=== PATIENT | female | born 2000 | race Caucasian/White ===

== ENCOUNTER 2020-11-03 13:03 | Outpatient (REF) | payer OTHER, SELFPAY | END 2020-11-03 13:04 | disposition home or self-care (01) | LOC: HO.LAB 13:03 | PROVIDERS: Visit Provider Internal Medicine | DX: Z20.822 Contact with and (suspected) exposure to COVID-19 (principal) | CPT/HCPCS: 36415; C9803; U0003 ==

== ENCOUNTER 2020-12-15 10:55 | Outpatient (REF) | payer OTHER, SELFPAY | END 2020-12-15 10:56 | disposition home or self-care (01) | LOC: HO.LAB 10:55 | PROVIDERS: Visit Provider Internal Medicine | DX: Z20.822 Contact with and (suspected) exposure to COVID-19 (principal) | CPT/HCPCS: 36415; C9803; U0003; U0005 ==

== ENCOUNTER 2021-09-02 17:45 | Emergency (ER) | payer MEDICAID, SELFPAY ==
[2021-09-02 18:28] VITALS: BP 110/64; PULSE 78; RESP 20; TEMP 37.1; O2SAT 99
[2021-09-02 18:53] VITALS: BP 110/64; PULSE 78; RESP 16; TEMP 37.1; O2SAT 99; BMI 38.4
--- NOTE | 2021-09-02 19:09 | ED_ITS ---
HPI - Female Genitourinary General Chief complaint: Urogenital-Female Stated complaint: Personal Issue Time Seen by Provider: 09/02/21 19:09 Source: patient Mode of arrival: ambulatory History of Present Illness HPI Narrative: 20-year-old female with no significant past medical history presenting to the ED complaining of lump in rectum x2 weeks. Admits to occasional constipation/straining. States area is not painful, no pain with BMs, no rectal bleeding/melena, areas not growing/enlarging. Denies fever, chills, nausea/vomiting, abdominal pain/diarrhea Related Data Previous Rx's Medication Instructions Recorded hydrocortisone acetate 25 mg 25 mg [place] BEDTIME PRN #12 ea 09/02/21 rectal suppository Allergies Allergy/AdvReac Type Severity Reaction Status Date / Time Apples Allergy Unknown swelling Uncoded 09/06/13 00:00 in mouth FRUIT Allergy Swelling Uncoded 09/02/21 18:59 Review of Systems Review of Systems: Constitutional: No Fever, No Chills ENT/Mouth: No Ear Pain, No Nasal Congestion, No sore throat, No Rhinorrhea Cardiovascular: No Chest Pain, No SOB Respiratory: No Cough Gastrointestinal: No Nausea, No Vomiting, No Diarrhea, No Constipation, No Abdominal pain Genitourinary:No Dysuria, No Urinary Frequency, No Hematuria,No Urgency, No Flank Pain, no rectal pain, rectal bleeding/melena Musculoskeletal: No joint pain, No Myalgias, No Joint Swelling Skin: + Skin Lesions, No rash Neuro: No Weakness, No Numbness, No Paresthesias Yes all other systems are reviewed and are negative [facility] Past Medical History Attestation statement: The following information was validated with the patient. Medical History (Updated 09/02/21 @ 19:24 by TOMAS Johnson) No known health problems Social History Social History Advance Directives: No Advance Directives Information Provided: No Patient : No Physical Exam Vital Signs: Vital Signs: Last Vital Signs Temp 98.7 F 09/02/21 18:53 Pulse 78 09/02/21 18:53 Resp 16 09/02/21 18:53 BP 110/64 09/02/21 18:53 Pulse Ox 99 09/02/21 18:53 Body Mass Index 38.4 Const: General: cooperative, healthy appearing, no acute distress, well developed, alert and awake Orientation/consciousness: patient oriented x3 Limitations: no limitations HENMT: Head: Yes normal to inspection and Yes atraumatic Ears: hearing grossly normal bilaterally General nose exam: Normal external nose present Face and sinus: Yes normal facial exam Eyes: General: appearance normal, both eyes and all related structures EOM: EOMs intact bilaterally Neck: Neck: Yes normal visual inspection and Yes no meningeal signs Resp: Effort & Inspection: normal respiratory effort and no respiratory distress Cardio: Rate: regular rate GI: Other: at 6 o'clock region, mildly inflamed, no erythema/cellulitis, no thrombosis, nontender Inspection: Yes normal to inspection Palpation (GI): Soft to palpation, nontender, no guarding and not rigid Rectal Exam - Female: normal sphincter tone, Internal hemorrhoid(s) present and No fecal impaction Skin: Rashes: no rashes Wounds: no wounds Neuro: General: patient oriented x3 and no meningeal signs Gait exam (Neuro): Normal gait present Extrem: General: Yes normal to inspection MDM - Female Genitourinary MDM Narrative Medical decision making narrative: 20-year-old female with no significant past medical history presenting to the ED complaining of lump in rectum x2 weeks. On exam VSS NAD, physical exam as above consistent with internal hemorrhoid, not thrombosed, no signs of infection. Medical Records Attestation: I reviewed the patient's medical records. Lab Data Attestation: I reviewed the patient's lab results. Discharge Plan Discharge Clinical Impression: Internal hemorrhoid Patient Disposition: Home, Self-Care Instructions: Hemorrhoids (ED) Additional Instructions: You have an internal hemorrhoid, avoid straining/sitting on the toilet for long periods of time Increase fiber in her diet Topical hydrocortisone will help with inflammation If area begins to grow, is increasingly painful, you have bloody or black stool please return to the ED Please follow-up with Colorectal as needed Prescriptions: New hydrocortisone acetate 25 mg suppository 25 mg NC BEDTIME PRN (Reason: hemorrhoids) Qty: 12 RF: 0 Referrals: Cory Licona MD [Physician] - 1 week
== END 2021-09-02 19:35 | disposition home or self-care (01) ==
PROVIDERS: Emergency Provider Internal Medicine
DX: K64.8 Other hemorrhoids (principal)
CPT/HCPCS: 99283

== ENCOUNTER → 2021-09-30 13:53 | Outpatient (BNVA) | payer MEDICAID, SELFPAY | PROVIDERS: Visit Provider Surgery | DX: K64.4 Residual hemorrhoidal skin tags (principal); K64.8 Other hemorrhoids | CPT/HCPCS: 46600; 99202 ==

== ENCOUNTER 2022-03-04 08:21 | Emergency (ER) | payer MEDICAID, SELFPAY ==
--- NOTE | ~2022-03-04 | XR_ITS ---
EXAMINATION: XR CHEST CLINICAL INFORMATION: Cough, shortness of breath COMPARISON: None TECHNIQUE: 2 views of the chest were obtained. FINDINGS: No significant abnormality is noted involving the heart, lungs, mediastinum, bony thorax or soft tissues. XR/XR chest 2V IMPRESSION: No acute cardiopulmonary process.
[2022-03-04 08:45] VITALS: BP 101/62; PULSE 82; RESP 18; TEMP 37; O2SAT 97; BMI 39.6
[2022-03-04 09:13] LABS: COVID-19 Test Negative (Negative); IDNOW Serial# 55D5AD1C
[2022-03-04 09:16] LABS: IDNOW Serial# 16C4AD1C; Influenza A Negative (Negative); Influenza B2 Negative (Negative)
--- NOTE | 2022-03-04 09:42 | ED.URI ---
HPI - URI/Sore Throat General Chief Complaint: Upper Respiratory Symptoms Stated Complaint: diff breathing Time Seen by Provider: 03/04/22 09:13 Source: patient Mode of arrival: ambulatory Limitations: no limitations History of Present Illness HPI Narrative: Patient reports 1 week ago having nausea with vomiting and diarrhea. Symptoms have been intermittent since then. Yesterday feeling very nauseous, had minimal to ED as she felt like she was going to throw up every time. Additionally, yesterday she developed a nonproductive cough, and feeling like she cannot take a deep breath. Also having nasal congestion with this. Denies fevers, shaking chills, ear pain, sore throat, chest pain, palpitations, abdominal pain, dysuria generalized weakness, lower extremity edema. Denies any prior history of DVT/PE, personal history of cancer, no recent surgery or prolonged immobilization. She is not a cigarette smoker. Related Data Previous Rx's Medication Instructions Recorded hydrocortisone acetate 25 mg 25 mg [place] BEDTIME PRN #12 ea 09/02/21 rectal suppository albuterol sulfate 90 mcg/actuation 2 puff INHALATION Q4-6H PRN #6.7 g 03/04/22 aerosol inhaler (ProAir HFA) guaifenesin 600 mg tablet, 600 mg PO Q12H 5 Days #10 tab 03/04/22 extended release 12 hr (Mucinex) prednisone 20 mg tablet 40 mg PO DAILY 4 Days #8 tab 03/04/22 Allergies Allergy/AdvReac Type Severity Reaction Status Date / Time Apples Allergy Unknown swelling Uncoded 09/06/13 00:00 in mouth FRUIT Allergy Swelling Uncoded 09/02/21 18:59 Review of Systems Review of Systems: Constitutional: No fever. No chills. No weakness. Positive fatigue. ENT/ Mouth: No Ear Pain, positive Nasal Congestion, no sore throat, No Rhinorrhea, No Swallowing Difficulty Skin: No rash or itching. Cardiovascular: No chest pain. No palpitations. Respiratory: Positive shortness of breath. Positive cough. No sputum production. Gastrointestinal: Positive nausea. No vomiting. No diarrhea. No abdominal pain. Genitourinary: No burning micturition. No urinary frequency. Neurologic: No headache. No dizziness. No syncope. No numbness or tingling in the extremities. Musculoskeletal: No muscle pain. No back pain. No joint pain or stiffness. Yes all other systems are reviewed and are negative [facility] Past Medical History Attestation statement: The following information was validated with the patient. Source: old records reviewed Medical History Internal and external hemorrhoids without complication No known health problems Obesity Social History Social History Advance Directives: No Advance Directives Information Provided: No Physical Exam Vital Signs: Vital Signs: Last Vital Signs Temp 98.6 F 03/04/22 08:45 Pulse 70 03/04/22 10:25 Resp 20 03/04/22 10:25 BP 101/62 03/04/22 08:45 Pulse Ox 97 03/04/22 08:45 BMI result Body Mass Index 39.6 Vital signs have been reviewed as normal and appeared to be correct. Blood pressure normal.? Heart rate normal.? Respiration rate normal. Temperature normal.? Oxygen saturation normal. Appearance: Alert.?Oriented to person, place and time. No acute distress.?Normal affect. Eyes: Pupils equal, round and reactive to light.? ENT: TM normal bilaterally Pharynx normal.?? Neck: Normal inspection.? Neck supple.??No cervical adenopathy CVS: Heart sounds normal. Normal heart rate and rhythm.? Pulses normal.?? Respiratory: No respiratory distress.? Lung sounds rhonchorous bilaterally with inspiratory wheezing bilaterally. No chest wall tenderness. No crepitus. No increased work of breathing Abdomen: Soft and non-tender. Normoactive bowel sounds. Skin: Skin warm and dry.? Normal skin color.? ? Extremities: No lower extremity edema.? No calf ttp? Neuro: Moves all extremities spontaneously. Sensation intact bilaterally. No motor deficits Ambulates with normal steady gait. Course Course Course Narrative: Patient is a 21-year-old female with no significant past medical history. She presents to the emergency department for evaluation of upper respiratory symptoms, with onset yesterday. She previously was having GI symptoms she attributed to a GI bug. Those have resolved. She reports being vaccinated for COVID-19 and influenza. She does report that one time in the past when she had influenza she required albuterol inhaler. On exam today she has rhonchorous throughout with inspiratory wheezing. Denies any prior history of asthma. She is overall well-appearing, no hypoxia, tachypnea, or tachycardia. Will obtain COVID-19 and influenza testing. Patient to receive albuterol 2.5 mg nebulizer in addition to chest x-ray. Reevaluation(s) Reevaluation #1: COVID-19 testing is negative. Influenza testing is negative. Chest x-ray pending at this time. Patient received albuterol and reports feeling no improvement. Lung sounds without any change. Will order additional albuterol 5 mg nebulizer in addition to prednisone 60 mg p.o. Time: 10:12 Reevaluation #2: Lung sounds significantly improved at this time, no further inspiratory wheezing. Has mildly productive cough at this point. Discussed plan of care for discharge home with albuterol inhaler, prednisone 40 mg p.o. daily for 4 days, and Mucinex. Advised reasons to return back to the emergency department. Provided with contact information for establishing care with a new primary care provider. Patient discharged home in stable condition. Time: 10:53 MDM - URI/Sore Throat Medical Records Attestation: I reviewed the patient's medical records. Lab Data Attestation: I reviewed the patient's lab results. Labs: Lab Results 03/04/22 03/04/22 Range/Units 08:49 08:49 COVID-19 (DEREJE) Negative (Negative) COVID-19 Clin Com See Note Influenza Type A (DAVI) Negative (Negative) Influenza Type B (DAVI) Negative (Negative) Influenza A & B Note See Note Imaging Data Chest x-ray: Radiologist's impression: FINDINGS: No significant abnormality is noted involving the heart, lungs, mediastinum, bony thorax or soft tissues. XR/XR chest 2V IMPRESSION: No acute cardiopulmonary process. Discharge Plan Discharge Clinical Impression: Upper respiratory infection Patient Disposition: Home, Self-Care Instructions: Upper Respiratory Infection (ED) Additional Instructions: Your COVID-19 and influenza testing were both negative. You have been given a new prescription for an albuterol inhaler to use as needed for shortness of breath/difficulty breathing or wheezing. You have been given a new prescription for prednisone this is a steroid to help open her airways and improve your breathing, please take this once a day with food. Additionally you have been given a prescription for Mucinex to help loosen the secretions in your chest please take this twice daily. You may return to the emergency department for any new or worsening symptoms or concerns. Please contact the primary care providers to establish care as a new patient. Prescriptions: New albuterol sulfate [ProAir HFA] 90 mcg/actuation HFA aerosol inhaler 2 puff inhalation Q4-6H PRN (Reason: shortness of breath or wheezing) Qty: 6.7 0RF prednisone 20 mg tablet 40 mg PO DAILY 4 Days Qty: 8 0RF guaifenesin [Mucinex] 600 mg tablet extended release 12hr 600 mg PO Q12H 5 Days Qty: 10 0RF No Action hydrocortisone acetate 25 mg suppository 25 mg WA BEDTIME PRN (Reason: hemorrhoids) Qty: 12 0RF Stand Alone Forms: Work/School Release Interventions: ED Discharge Assessment Last Done: 03/04/22 11:17 Discharge Date/Time: 03/04/22 11:18
[2022-03-04 09:46] VITALS: PULSE 70; RESP 20; O2SAT 97
[2022-03-04] MEDS: Albuterol Sulfate (0.083%) 2.5 MG/3 ML VIAL.NEB INHALE (09:46)
[2022-03-04 10:25] VITALS: PULSE 70; RESP 20; O2SAT 97
[2022-03-04] MEDS: Albuterol Sulfate (0.083%) 2.5 MG/3 ML VIAL.NEB 5 MG INHALE (10:25)
[2022-03-04] MEDS: predniSONE 20 MG TABLET 60 MG PO (10:53)
== END 2022-03-04 11:18 | disposition home or self-care (01) ==
PROVIDERS: Emergency Provider Emergency Medicine
DX: J06.9 Acute upper respiratory infection, unspecified (principal); Z20.822 Contact with and (suspected) exposure to COVID-19
CPT/HCPCS: 71046; 87502; 87635; 94640; 99283; 99284

== ENCOUNTER 2022-09-14 11:28 | Emergency (ER) | payer MEDICAID, SELFPAY ==
[2022-09-14 11:37] VITALS: BP 108/59; PULSE 68; RESP 18; TEMP 36.1; BMI 39.9
--- NOTE | 2022-09-14 13:09 | ED.WOUNDLAC ---
HPI - Wound/Laceration General Chief Complaint: Wound/Laceration <Silvia Case NP - Last Filed: 09/14/22 14:34> Stated Complaint: Toe lac <Silvia Case NP - Last Filed: 09/14/22 14:34> Time Seen by Provider: 09/14/22 13:05 <Silvia Case NP - Last Filed: 09/14/22 14:34> Source: patient <Silvia Case NP - Last Filed: 09/14/22 14:34> Mode of arrival: ambulatory <Silvia Case NP - Last Filed: 09/14/22 14:34> Limitations: no limitations <Silvia Case NP - Last Filed: 09/14/22 14:34> History of Present Illness HPI narrative: 21-year-old female here with laceration to the left middle toe. Patient reports she was putting up [employer] decorations and she stepped on a piece of broken plastic. This happened last night. Tetanus is up-to-date <Silvia Case NP - Last Filed: 09/14/22 14:34> Related Data Home Medications: Previous Rx's Medication Instructions Recorded hydrocortisone acetate 25 mg 25 mg [place] BEDTIME PRN hemorrhoids 09/02/21 rectal suppository #12 ea albuterol sulfate 90 mcg/actuation 2 puff inhalation Q4-6H PRN 03/04/22 aerosol inhaler (ProAir HFA) shortness of breath or wheezing #6.7 grams guaifenesin 600 mg tablet, 600 mg PO Q12H 5 days #10 tabs 03/04/22 extended release 12 hr (Mucinex) prednisone 20 mg tablet 40 mg PO DAILY 4 days #8 tabs 03/04/22 <MEL Raya Last Filed: 09/14/22 14:34> Allergies/Adverse Reactions: Allergies Allergy/AdvReac Type Severity Reaction Status Date / Time Apples Allergy Unknown swelling Uncoded 09/06/13 00:00 in mouth FRUIT Allergy Swelling Uncoded 09/02/21 18:59 <MEL Raya Last Filed: 09/14/22 14:34> Review of Systems Review of Systems: Yes all other systems are reviewed and are negative <Silvia Case NP - Last Filed: 09/14/22 14:34> Constitutional: Constitutional: Reports no additional constitutional complaints, Denies body ache(s), Denies chills, Denies fever(s), Denies headache(s) and Denies weakness <Silvia Case NP - Last Filed: 09/14/22 14:34> Eyes: Eyes: Reports no additional eye complaints and Denies change in vision <Silvia Case NP - Last Filed: 09/14/22 14:34> ENT: Reports system reviewed and no additional complaints, except as documented, Denies dizziness, Denies headache(s), Denies nasal congestion, Denies nasal discharge and Denies neck pain <Silvia Case NP - Last Filed: 09/14/22 14:34> Cardiovascular: Cardiovascular: Reports no additional cardiovascular complaints, Denies chest pain, Denies leg edema and Denies dyspnea <Silvia Case NP - Last Filed: 09/14/22 14:34> Respiratory: Respiratory: Reports no additional respiratory complaints, Denies cough and Denies dyspnea <Silvia Case NP - Last Filed: 09/14/22 14:34> Gastrointestinal: Gastrointestinal: Reports no additional gastrointestinal complaints, Denies abdominal pain, Denies diarrhea, Denies nausea and Denies vomiting <Silvia Case NP - Last Filed: 09/14/22 14:34> Genitourinary: Genitourinary: Reports no additional female genitourinary complaints and Denies urinary incontinence <Silvia Case NP - Last Filed: 09/14/22 14:34> Musculoskeletal: Musculoskeletal: Reports no additional musculoskeletal complaints, Denies back pain, Denies arthralgias, Denies joint swelling, Denies neck pain, Denies numbness and Denies tingling <Silvia Case NP - Last Filed: 09/14/22 14:34> Integumentary/Breasts: Skin/Breast: Reports system reviewed and no additional complaints, except as docu and Denies rash <Silvia Case NP - Last Filed: 09/14/22 14:34> Neurologic: Reports system reviewed and no additional complaints, except as documented, Denies Abnormal speech present, Denies dizziness, Denies headache(s), Denies numbness, Denies tingling and Denies weakness <Silvia Case NP - Last Filed: 09/14/22 14:34> [facility] Past Medical History Attestation statement: The following information was validated with the patient. <Slivia Case NP - Last Filed: 09/14/22 14:34> Source: old records reviewed and nursing notes reviewed <Silvia aCse NP - Last Filed: 09/14/22 14:34> Medical History: Medical History Internal and external hemorrhoids without complication No known health problems Obesity <Silvia Case NP - Last Filed: 09/14/22 14:34> Social History Social History: Social History Advance Directives: No Advance Directives Information Provided: No <Silvia Case NP - Last Filed: 09/14/22 14:34> Physical Exam Vital Signs: Vital Signs: Last Vital Signs Temp 97 F 09/14/22 11:37 Pulse 68 09/14/22 11:37 Resp 18 09/14/22 11:37 BP 108/59 L 09/14/22 11:37 O2 Del Method 09/14/22 11:37 BMI result Body Mass Index 39.9 <Silvia Case NP - Last Filed: 09/14/22 14:34> Vital Signs: Last Vital Signs Temp 97 F 09/14/22 11:37 Pulse 68 09/14/22 11:37 Resp 18 09/14/22 11:37 BP 108/59 L 09/14/22 11:37 O2 Del Method 09/14/22 11:37 BMI result Body Mass Index 39.9 <Estrella Antonio NP - Last Filed: 09/14/22 14:15> Const: General: cooperative, healthy appearing, comfortable and no acute distress <Silvia Case NP - Last Filed: 09/14/22 14:34> Orientation/consciousness: patient oriented x3 <Silvia Case NP - Last Filed: 09/14/22 14:34> Limitations: no limitations <Silvia Case NP - Last Filed: 09/14/22 14:34> HEENT: Head: Yes normal to inspection <Silvia Case NP - Last Filed: 09/14/22 14:34> Ears: hearing grossly normal bilaterally <Silvia Case NP - Last Filed: 09/14/22 14:34> General nose exam: Normal external nose present <Silvia Case NP - Last Filed: 09/14/22 14:34> Face and sinus: Yes normal facial exam <Silvia Case NP - Last Filed: 09/14/22 14:34> Mouth: Normal oral and palatal mucosa present <Silvia Case NP - Last Filed: 09/14/22 14:34> Throat: Yes posterior oropharynx normal <Silvia Case PASTE PLANT SUPERVISOR - Last Filed: 09/14/22 14:34> Eyes: General: appearance normal, both eyes and all related structures <Silvia Case NP - Last Filed: 09/14/22 14:34> Pupils: Equal, round and reactive pupils present <Silvia Case NP - Last Filed: 09/14/22 14:34> Neck: Neck: Yes normal visual inspection <Silvia Case NP - Last Filed: 09/14/22 14:34> Chest: Chest palpation & inspection: normal inspection of the chest <Silvia Case NP - Last Filed: 09/14/22 14:34> Resp: Effort & Inspection: normal respiratory effort <Silvia Case NP - Last Filed: 09/14/22 14:34> Auscultation: clear to auscultation bilaterally <Silvia Case NP - Last Filed: 09/14/22 14:34> Cardio: Rate: regular rate <Silvia Case NP - Last Filed: 09/14/22 14:34> Rhythm: regular rhythm <Silvia Case NP - Last Filed: 09/14/22 14:34> Peripheral pulses: Peripheral pulses 2+ throughout <Silvia Case PASTE PLANT SUPERVISOR - Last Filed: 09/14/22 14:34> GI: Inspection: Yes normal to inspection <Silvia Case PASTE PLANT SUPERVISOR - Last Filed: 09/14/22 14:34> Palpation (GI): Soft to palpation and nontender <Silvia Case PASTE PLANT SUPERVISOR - Last Filed: 09/14/22 14:34> Auscultation: normal bowel sounds <Silvia Case PASTE PLANT SUPERVISOR - Last Filed: 09/14/22 14:34> Back/Spine/Pelvis: Thoracic/Lumbar Spine: thoracic and lumbar spine normal to inspection <Silvia Case PASTE PLANT SUPERVISOR - Last Filed: 09/14/22 14:34> Skin: General skin exam: no rashes or lesions noted <Silvia Case NP - Last Filed: 09/14/22 14:34> Neuro: General: patient oriented x3, no focal motor deficits and normal sensation to monofilament <Silvia Case PASTE PLANT SUPERVISOR - Last Filed: 09/14/22 14:34> Cranial nerves: Yes Equal, round and reactive pupils present <Silvia Case PASTE PLANT SUPERVISOR - Last Filed: 09/14/22 14:34> Cognition (Neuro): normal cognition <Silvia Case PASTE PLANT SUPERVISOR - Last Filed: 09/14/22 14:34> Speech: No Abnormal speech present <Silvia Case PASTE PLANT SUPERVISOR - Last Filed: 09/14/22 14:34> Gait exam (Neuro): Normal gait present <Silvia Case PASTE PLANT SUPERVISOR - Last Filed: 09/14/22 14:34> Motor exam (neuro): 5/5 motor strength present throughout <Silvia Case PASTE PLANT SUPERVISOR - Last Filed: 09/14/22 14:34> Extrem: General: Yes normal to inspection <Silvia Case PASTE PLANT SUPERVISOR - Last Filed: 09/14/22 14:34> Ankle/foot/toe images: 1. 3m lac <Silvia Case PASTE PLANT SUPERVISOR - Last Filed: 09/14/22 14:34> Course Course Course Narrative: See procedure note for wound repair. Done by Estrella LEAL. Patient given postop shoe for ambulation. Reviewed worrisome signs and symptoms when to return to the emergency room. Comfortable for discharge home. <Silvia Case NP - Last Filed: 09/14/22 14:34> Medications Administered Discontinued Medications Generic Name Dose Route Start Last Admin Trade Name Freq PRN Reason Stop Dose Admin Lidocaine HCl 2 ml 09/14/22 13:12 09/14/22 13:21 Lidocaine Hcl 1 % Mpf 2 Ml Vial INFILTRATI 09/14/22 13:13 2 ml ONCE ONE Administration <Silvia Case NP - Last Filed: 09/14/22 14:34> Medications Administered Discontinued Medications Generic Name Dose Route Start Last Admin Trade Name Freq PRN Reason Stop Dose Admin Lidocaine HCl 2 ml 09/14/22 13:12 09/14/22 13:21 Lidocaine Hcl 1 % Mpf 2 Ml Vial INFILTRATI 09/14/22 13:13 2 ml ONCE ONE Administration <Estrella Antonio NP - Last Filed: 09/14/22 14:15> MDM - Wound/Laceration MDM Narrative Medical decision making narrative: Foot laceration Will need wound repair and digital. See procedure note <Silvia Case NP - Last Filed: 09/14/22 14:34> Medical Records Attestation: I reviewed the patient's medical records. <Silvai Case NP - Last Filed: 09/14/22 14:34> Lab Data Attestation: I reviewed the patient's lab results. <Silvia Case NP - Last Filed: 09/14/22 14:34> Procedures Laceration Laceration 1: Site: other (right 3rd toe - posterior) <Estrella Antonio NP - Last Filed: 09/14/22 14:15> Side (If applicable): right <Estrella Antonio NP - Last Filed: 09/14/22 14:15> Description: flap <Estrella Antonio NP - Last Filed: 09/14/22 14:15> Depth: simple, single layer <Estrella Antonio NP - Last Filed: 09/14/22 14:15> Local Anesthetic: lidocaine 1% <Estrella Antonio NP - Last Filed: 09/14/22 14:15> Pre-repair: irrigated extensively <Estrella Antonio NP - Last Filed: 09/14/22 14:15> Skin layer closed with: nylon <Estrella Antonio NP - Last Filed: 09/14/22 14:15> Size (cm): 5-0 <Estrella Antonoi NP - Last Filed: 09/14/22 14:15> Number of sutures: 5 <Estrella Antonio NP - Last Filed: 09/14/22 14:15> Technique: simple, interrupted <Estrella Antonio NP - Last Filed: 09/14/22 14:15> Nerve Block Nerve Block 1: Time out performed: Yes <Silvia Case NP - Last Filed: 09/14/22 14:34> Local Anesthetic: lidocaine 1% <Silvia Case NP - Last Filed: 09/14/22 14:34> Amount of anesthesia used (mL): 3 <Silvia Case NP - Last Filed: 09/14/22 14:34> Side: left <Silvia Case NP - Last Filed: 09/14/22 14:34> Nerve Blocks: digital <Silvia Case NP - Last Filed: 09/14/22 14:34> Procedure Successful: Yes <Silvia Case NP - Last Filed: 09/14/22 14:34> Patient Tolerated Procedure: well <Silvia Case NP - Last Filed: 09/14/22 14:34> Complications: none <Silvia Case NP - Last Filed: 09/14/22 14:34> Discharge Plan Discharge Clinical Impression: Laceration <Silvia Case NP - Last Filed: 09/14/22 14:34> Patient Disposition: Home, Self-Care <Silvia Case NP - Last Filed: 09/14/22 14:34> Instructions: Laceration (ED) <Silvia Case NP - Last Filed: 09/14/22 14:34> Additional Instructions: sutures out in 7- 10 days when showering please wrap the foot so it does not get wet Use the shoe for comfort when walking <Silvia Case NP - Last Filed: 09/14/22 14:34> Prescriptions: No Action hydrocortisone acetate 25 mg suppository 25 mg [place] BEDTIME PRN (Reason: hemorrhoids) Qty: 12 0RF albuterol sulfate [ProAir HFA] 90 mcg/actuation HFA aerosol inhaler 2 puff inhalation Q4-6H PRN (Reason: shortness of breath or wheezing) Qty: 6.7 0RF prednisone 20 mg tablet 40 mg PO DAILY 4 Days Qty: 8 0RF guaifenesin [Mucinex] 600 mg tablet extended release 12hr 600 mg PO Q12H 5 Days Qty: 10 0RF <Silvia Case NP - Last Filed: 09/14/22 14:34> Referrals: [facility] [Primary Care Provider] - 1 week (as needed) <Silvia Case NP - Last Filed: 09/14/22 14:34> Stand Alone Forms: Work/School Release <Silvia Case NP - Last Filed: 09/14/22 14:34> Interventions: ED Discharge Assessment Last Done: 09/14/22 14:24 <Silvia Case NP - Last Filed: 09/14/22 14:34> Discharge Date/Time: 09/14/22 14:24 <Silvia Case NP - Last Filed: 09/14/22 14:34>
[2022-09-14] MEDS: Lidocaine HCl 1 % MPF 2 ML VIAL INFILTRATI (13:21)
== END 2022-09-14 14:24 | disposition home or self-care (01) ==
PROVIDERS: Emergency Provider Emergency Medicine
DX: S91.114A Laceration without foreign body of right lesser toe(s) without damage to nail, initial encounter (principal); S91.115A Laceration without foreign body of left lesser toe(s) without damage to nail, initial encounter; W25.XXXA Contact with sharp glass, initial encounter; Y93.9 Activity, unspecified; Y92.009 Unspecified place in unspecified non-institutional (private) residence as the place of occurrence of the external cause; Y99.9 Unspecified external cause status
CPT/HCPCS: 12042; 99282; 99284

== ENCOUNTER 2023-05-27 19:39 | Outpatient (REF) | payer MEDICAID, SELFPAY ==
[2023-05-28 04:45] LABS: CT PCR NOT DETECTED (Not Detect.); NG PCR NOT DETECTED (Not Detect.)
[2023-05-28 12:51] LABS: BV Int Neg Control Negative (Negative); BV Int Pos Control Positive (Positive)
== END 2023-05-27 19:40 | disposition home or self-care (01) ==
LOC: HO.HHCLNP 19:39
PROVIDERS: Visit Provider Emergency Medicine
DX: N89.8 Other specified noninflammatory disorders of vagina (principal)
CPT/HCPCS: 0353U; 87086; 87147; 87480; 87510; 87660

== ENCOUNTER 2024-02-08 14:47 | Outpatient (REF) | payer MEDICAID, SELFPAY ==
--- NOTE | ~2024-02-08 | CT_ITS ---
EXAMINATION: CT SINUS WITHOUT CONTRAST CLINICAL INFORMATION: 23-year-old with chronic sinusitis. COMPARISON: None available. TECHNIQUE: Volumetric CT imaging of the paranasal sinuses was performed without IV contrast. This CT examination was performed using dose optimization techniques as appropriate, variously including the following: *Automated exposure control *Adjustment of mA and/or kV according to patient size (this includes techniques or standardized protocols for targeted exams where dose is matched to indication/reason for exam; i.e. extremities or head) *Use of iterative reconstruction technique DLP: 102.00 mGy-cm FINDINGS: NASAL CAVITY: There is [id number] nasal septal deviation to the right with narrowing of the right nasal cavity. The olfactory recesses are clear. No discrete nasal cavity masses are identified. The visualized nasopharyngeal soft tissues appear symmetric and normal in attenuation. MAXILLARY SINUSES: There are retention cysts in the maxillary sinuses bilaterally, left more than right with the largest of these on the left measuring approximately 2.8 cm. The right OMC is patent. Mucosal thickening obscures the left maxillary ostium and a portion of the left infundibulum. No air-fluid levels. Some mucosal thickening noted in both maxillary sinuses as well. ETHMOID SINUSES: There is some mucosal thickening in the ethmoid complex bilaterally, with intact bony watson. Probable retention cyst in the mid left ethmoid complex. FRONTAL SINUSES: Hypoplastic. SPHENOID SINUS: Soft tissue occlusion of the sphenoethmoidal recesses and sphenoid ostia bilaterally which may reflect polyps. Otherwise the sphenoid sinus is clear. Carotid canals are covered by bone. ADDITIONAL FINDINGS: Limited assessment of the included intracranial structures demonstrates no acute process. The visualized orbital soft tissues appear grossly unremarkable. The visualized calvarium is intact. The mastoids and middle ear cavities are unopacified. Ear piercing noted on the right. CT/CT sinus wo IV con IMPRESSION: 1. Nasal septal deviation to the right with narrowing of the right nasal cavity. 2. Retention cysts in the maxillary sinuses bilaterally, left more than right with mucosal thickening in the maxillary sinuses and ethmoid complex bilaterally. 3. Soft tissue occlusion of the sphenoethmoidal recesses and sphenoid ostia bilaterally which may reflect polyps. Left OMC is partially occluded. No air-fluid levels. 4. Hypoplastic frontal sinuses.
== END 2024-02-08 14:48 | disposition home or self-care (01) ==
LOC: HO.CT 14:47
PROVIDERS: PCP Registered Nurse; Visit Provider Registered Nurse
DX: J32.9 Chronic sinusitis, unspecified (principal)
CPT/HCPCS: 70486

== ENCOUNTER 2024-02-29 12:07 | Outpatient (REF) | payer MEDICAID, SELFPAY ==
[2024-03-02 21:39] LABS: C. trachomatis RNA TMA NOT DETECTED (NOT DETECTED); N. gonorrhoeae RNA TMA NOT DETECTED (NOT DETECTED)
== END 2024-02-29 12:08 | disposition home or self-care (01) ==
LOC: HO.HHCLNP 12:07
PROVIDERS: Visit Provider Registered Nurse
DX: N76.0 Acute vaginitis (principal)
CPT/HCPCS: 36415; 81513; 87491; 87591

== ENCOUNTER 2024-03-06 09:44 | Outpatient (REF) | payer MEDICAID, SELFPAY ==
[2024-03-06 12:04] LABS: Estimated Average Glucose 108 mg/dL; Hemoglobin A1c % 5.4 % (<6.0)
[2024-03-06 12:08] LABS: Alanine Aminotransferase 16 U/L (0-31); Albumin Level 4.3 g/dL (3.5-5.0); Alkaline Phosphatase 63 U/L (39-117); Anion Gap 14 (12-20); Aspartate Amino Transferase 14 U/L (5-31); Bilirubin Total 0.4 mg/dL (0.0-1.0); Blood Urea Nitrogen 15 mg/dL (9-16); Calcium 9.7 mg/dL (8.4-10.2); Carbon Dioxide 24 mmol/L (22-29); Chloride 105 mmol/L (96-108); Cholesterol 135 mg/dL (<200); Estimated Glomerular Filt Rate > 60; Glucose Random 91 mg/dL (60-115); HDL Cholesterol 54 mg/dL (>40); LDL Cholesterol Calculated 67 mg/dL (<100); Potassium 3.6 mmol/L (3.3-5.1); Sodium 139 mmol/L (135-145); Total Protein 7.2 g/dL (6.5-8.0); Triglycerides 72 mg/dL (<150)
[2024-03-06 12:22] LABS: TSH reflex Free T4 0.54 uIU/mL (0.32-4.0); Vitamin D 25-OH Total 38.5 ng/mL (>30)
[2024-03-07 08:30] LABS: HBS Num1 19.44 mIU/mL (0-7.99); HBc Num1 0.09 S/CO (0.00-0.79); HBsAGNum1 0.28 S/CO (0.00-0.99); HIV AB/AG Nonreactive (Nonreactive); HIV Num 1 0.06 S/CO (0.00-0.99); Hepatitis A Antibody IgM 0.14 Index (0-0.79); Hepatitis B Core Antibody Nonreactive (Nonreactive); Hepatitis B Surface Antigen Negative (Negative); ~HepC Num1 0.15 S/CO (0.00-0.79); ~Hepatitis A Antibody IgM Nonreactive (Nonreactive); ~Hepatitis B Surface Antibody REACTIVE (Nonreactive); ~Hepatitis C Antibody Nonreactive (Nonreactive)
[2024-03-07 16:52] LABS: RPR Rapid Plasma Reagin NON-REACTIVE (NON-REACTIVE)
[2024-03-10 14:59] LABS: Testosterone, Total 34 ng/dL (2-45)
== END 2024-03-06 09:45 | disposition home or self-care (01) ==
LOC: HO.HHCL 09:44
PROVIDERS: Visit Provider Registered Nurse
DX: E66.01 Morbid (severe) obesity due to excess calories (principal); Z70.8 Other sex counseling; L68.0 Hirsutism; Z68.41 Body mass index [BMI] 40.0-44.9, adult
CPT/HCPCS: 36415; 80053; 80061; 82306; 83036; 84403; 84443; 86592; 86704; 86706; 86709; 86803; 87340; 87389

== ENCOUNTER 2024-07-10 13:39 | Outpatient (REF) | payer MEDICAID, SELFPAY ==
[2024-07-11 05:27] LABS: CT PCR NOT DETECTED (Not Detect.); NG PCR NOT DETECTED (Not Detect.)
[2024-07-11 11:35] LABS: Bacterial Vaginosis PCR POSITIVE (Negative); Candida Group PCR DETECTED (Not Detect); Candida glab krusei PCR NOT DETECTED (Not Detect); Trichomonas vaginalis PCR NOT DETECTED (Not Detect)
== END 2024-07-10 13:40 | disposition home or self-care (01) ==
LOC: HO.HHCLNP 13:39
PROVIDERS: Visit Provider Internal Medicine
DX: N90.89 Other specified noninflammatory disorders of vulva and perineum (principal); Z11.3 Encounter for screening for infections with a predominantly sexual mode of transmission
CPT/HCPCS: 0352U; 87070; 87073; 87077; 87186; 87205; 87491; 87591

== ENCOUNTER 2025-02-21 14:40 | Outpatient (REF) | payer MEDICAID, SELFPAY ==
--- NOTE | ~2025-02-21 | XR_ITS ---
EXAMINATION: XR TOES, RIGHT CLINICAL INFORMATION: pain, swelling, bruising R great toe x 2 days s/p trauma COMPARISON: None available. TECHNIQUE: 3 views of the right toes were obtained. FINDINGS: There is a subtle nondisplaced intra-articular fracture of the distal aspect of the proximal phalanx of the hallux. There is associated soft tissue swelling. There are no additional fractures or malalignment. XR/XR toe RT min 2V IMPRESSION: Subtle nondisplaced intra-articular fracture distal aspect of the proximal phalanx of the hallux. Mild soft tissue swelling. Electronically signed by: Wayne Rodriguez MD 02/21/2025 03:47 PM EDT
--- OUTSIDE RECORDS SUMMARY | 2025-02-21 16:40 | XMS_ITS | Encounter Summary ---
Author Organization [employer] Address [address] [place] [address] Care Team Providers Care Rippler Name Role Phone Yokasta Leonardo [facility] Primary Care Provider [phone] Reason for Visit * Reason Onset Date Comments chart prep 02/21/2025 Encounter Details Date Type Department Care Team ([facility] st Contact Info) Description 02/21/2025 Telephone [facility] [address], [place] [phone] Malissa Yokasta [facility] [address] [place], [place] [phone] chart prep Social History Tobacco Use Types Packs/Day Years Used Date Smoking Tobacco: Never Passive Smoke Exposure: Never Smokeless Tobacco: Never Alcohol Use Standard Drinks/Week Comments Never 0 (1 standard drink = 0.6 oz pur e alcohol) Depression Answer Date Recorded Patient Health Questionnaire-9 Score 0 12/07/2024 Patient Health Questionnaire-9 Score 0 12/07/2024 Last PHQ-9: Questionnaire Data Not on file 0 12/07/2024 Housing Stability Answer Date Recorded What is your housing situation today? I have dori arroyo 01/20/[address] you li ve. Do you have problems with any of the following? None of the above 01/20/2024 Food Insecurity Answer Date Recorded Within the past 12 months, y ou worried that your food would run out before you got money to buy more: Sometimes True 2023 Within the past 12 months,th e food you bought just didn't last and you didn't have enough money to get more: Sometimes True 01/20/2024 Transportation Answer Date Recorded In the past 12 months, has l ack of transportation kept you from medical appts, meetings, work or from getting things needed for daily living? No 01/20/2024 Utilities Answer Date Recorded In the past 12 months, has t he electric, gas, oil or water company threatened to shut off services in your home? I am not sure 01/20/2024 Depression Answer Date Recorded Patient Health Questionnaire-2 Score 0 12/07/2024 Comments No Sex and Gender Information Value Date Recorded Sex Assigned at Female 11/04/2022 11:15 AM EST Legal Sex Female 11:14 AM EST Gender Identity Female 11/04/2022 11:15 AM EST Sexual Orientation Straight 12/09/2022 9: 09 AM EST documented as of this encounter Miscellaneous Notes * Telephone Encounter - Dorcas Rashid MA - 02/21/2025 11:39 AM EDT Chart Prep Labs: done Images: done Referrals: complete Vaccines due: Covid, Tdap, Hep B, and HPV Screenings: LMP Overdue care gaps: SDOH, PHQ-9, DARINEL-7, Disability screen, and Tobacco documented in this encounter Plan of Treatment Upcoming Encounters Date Type Department Care Team (Late st Contact Info) Description 02/25/2025 9:45 AM EDT Office Visit [facility] [address] [place] [address] Yokasta Leonardo FNP [address] [place] [address] documented as of this encounter Visit Diagnoses Not on filedocumented in this encounter Additional Health Concerns Assessment Noted Time PHQ-9 Depression Total Score: 0 12/07/19 25 10:23 AM EST documented as of this encounter Care Teams Rippler Relationship Specialty Start Date End Date Yokasta Leonardo FNP [address] [place] [id number] PCP - General Family Medicine 01/03/23 documented as of this encounter
--- OUTSIDE RECORDS SUMMARY | 2025-02-21 16:40 | XMS_ITS | Encounter Summary ---
Author Organization [employer] Address [address] [place] [address] Care Team Providers Care Environmental Sampling Technician Name Role Phone Yokasta Leonardo [facility] Primary Care Provider [phone] Encounter Details Date Type Department Care Team (Late st Contact Info) Description 02/21/2025 Telephone [facility] [address] [place], [place] [phone] Grazyna Shanks DO [address] [place], [place] [phone] Social History Tobacco Use Types Packs/Day Years [...] encounter Miscellaneous Notes * Telephone Encounter - Grazyna Shanks DO - 02/21/2025 4:29 PM EDT Please advise pt that her toe xrays showed a fracture in her big toe. Please advise pt that she is being referred to podiatry for eval. Please offer pt a walking boot in the interim. Thank you. documented in this encounter Plan of Treatment Upcoming Encounters Date Type Department Care Team (Late st Contact Info) Description 02/25/2025 9:45 AM EDT Office Visit [facility] [address] [place] [address] Yokasta Leonardo FNP [address] [place] [address] documented as of this encounter Visit Diagnoses Not on filedocumented in this encounter Additional Health Concerns Assessment Noted Time PHQ-9 Depression Total Score: 0 12/07/19 25 10:23 AM EST documented as of this encounter Care Teams Environmental Sampling Technician Relationship Specialty Start Date End Date Yokasta Leonardo FNP [address] [place] [address] PCP - General Family Medicine 01/03/23 documented as of this encounter
--- OUTSIDE RECORDS SUMMARY | 2025-02-21 16:40 | XMS_ITS | Encounter Summary ---
Author Organization [employer] Address [address] [place] [address] Care Team Providers Care Hvac Service Technician Name Role Phone Yokasta Leonardo [facility] Primary Care Provider [phone] Reason for Visit * Reason Onset Date Comments Medication Question 01/25/2025 Encounter Details Date Type Department Care Team ([facility] st Contact Info) Description 01/25/2025 Telephone [facility] MED[facility] [address] [place], [place] [phone] MalissaYokasta [facility] [address] [place], [place] [phone] Medication Question Social History Tobacco Use Types Packs/Day Years [...] encounter Miscellaneous Notes * Telephone Encounter - Wing Loy RN - 01/25/2025 10:30 AM EDT Tc to pt regarding ongoing rash x 1 yr that is on the neck, back of legs bilaterally, and chest. States the rashes is red, dry, and raises that gets better when triamcinolone is used but returns whennot in use. Sweat triggers it and the rashes comes and goes. Gave appt for 02/01 at 11 am with PCP. Advised pt to use lotion and that refill for triamcinolone was filled. Advised pt to call back if rash gets worse. Pt verbalized understanding and agreement with plan. * Telephone Encounter - Oneal Méndez - 01/25/2025 9:12 AM EDT Tc from pt requesting a call back to discuss getting a alternated medication for triamcinolone (Kenalog) 0.025 % cream. Pt states that the medication is not working for her, she has been taking it for months and nothing has changed. Contact pt at [phone] documented in this encounter Plan of Treatment Upcoming Encounters Date Type Department Care Team (Late st Contact Info) Description 02/25/2025 9:45 AM EDT Office Visit [facility] MEDICINE [address] [place] [phone] Yokasta Leonardo FNP [address] [place] [address] documented as of this encounter Visit Diagnoses Not on filedocumented in this encounter Additional Health Concerns Assessment Noted Time PHQ-9 Depression Total Score: 0 12/07/19 25 10:23 AM EST documented as of this encounter Care Teams Hvac Service Technician Relationship Specialty Start Date End Date Yokasta Leonardo FNP [address] [place] [address] PCP - General Family Medicine 01/03/23 documented as of this encounter
--- OUTSIDE RECORDS SUMMARY | 2025-02-21 16:40 | XMS_ITS | Encounter Summary ---
Author Organization [employer] Address [address] [facility] [address] [place] [address] Care Team Providers Care Muffle Operator Name Role Phone Yokasta Leonardo [facility] Primary Care Provider [phone] Encounter Details Date Type Department Care Team ([facility] Contact Info) Description 01/03/2023 Orders Only [facility] [address] [place], [place] [phone] Grazyna Rubio LPN Social History Tobacco Use Types Packs/Day Years Used Date Smoking Tobacco: Never Smokeless Tobacco: Never Comments Unknown Sex and Gender Information Value Date Recorded Sex Assigned at Female 11/04/2022 11:15 AM EST Legal Sex Female 11:14 AM EST Gender Identity Female 11/04/2022 11:15 AM EST Sexual Orientation Straight 12/09/2022 9: 09 AM EST COVID-19 Exposure Response Date Recorded In the last 10 days, have yo u been in contact with someone who was confirmed or suspected to have Coronavirus/COVID-19? No / Unsure 12/09/2022 9:06 AM EST documented as of this encounter Plan of Treatment Upcoming Encounters Date Type Department Care Team (Late Contact Info) Description 02/25/2025 9:45 AM EDT Office Visit [facility] [address] [place], [place] [phone] BrunoYokasta [facility] [address] [place], [place] [phone] documented as of this encounter Procedures Procedure Name Priority Date/Time Associated Diagnosis Comments CULTURE, URINE, ROUTINE Routine 05/27/2023 2:21 PM EDT documented in this encounter Results * Culture, Urine, Routine (05/27/2023 2:21 PM EDT) Urine specimen obtained by clean catch procedure / Unknown 05/27/2023 2:21 PM EDT 05/27/2023 7:54 PM EDT Comment:[facility] - 05/29/2023 1:23 PM EDT Urine Culture Report Result Urine Culture > 100,000 cfu/ml Urine Culture Mixed bacterial mariam characteristic of Urine Culture urogenital contamination. Strep agalactiae (Grp B) Quant 10,000 to 50,000 cfu/mL Susc N/A Susceptibility not routinely performed on this isolate. Specimen Source: Urine clean catch [facility] - GENERAL ORD ERABLES Final Result [facility] [address] [place] [address] [phone] documented in this encounter Visit Diagnoses Not on filedocumented in this encounter Care Teams Muffle Operator Relationship Specialty Start Date End Date Yokasta Leonardo FNP [address] [place] [address] PCP - General Family Medicine 01/03/23 documented as of this encounter
--- OUTSIDE RECORDS SUMMARY | 2025-02-21 16:40 | XMS_ITS | Clinical Summary ---
Author Organization [employer] Address [address] [facility] [address] [place] [address] Care Team Providers Care Truck Bench Mechanic Name Role Phone Yokasta Leonardo [facility] Primary Care Provider [phone] Allergies Active Allergy Reactions Criticality Noted Date Comments Fruit Extracts 03/10/2023 Dried fruit allergy Medications * This document contains information received from the source organization and may not represent a complete record from that organization. budesonide (Rhinocort AQ) 32 MCG/ACT nasal sprayIndication s:Chronic sinusitis, unspecified location Administer 1-2 sprays into each nostril in the morning. 8.5 g 2 01/25/20 24 Active hydrOXYzine HCl (Atarax) 25 MG tabletIndicatio ns:Generalized anxiety disorder TAKE 1 TABLET BY MOUTH UP TO 4 TIMES DAILY 120 tablet 1 06/01/20 24 Active norethindrone (Micronor) 0.35 MG tablet Take 1 tablet (0.35 mg) by mouth Once per day. 28 tablet 11 07/10/20 24 025 Active escitalopram (Lexapro) 20 MG tabletIndicatio ns:Generalized anxiety disorder Take 1 tablet (20 mg) by mouth Once per day. 30 tablet 2 08/27/20 24 Active bacitracin 500 UNIT/GM ointment Apply to affected area daily 30 g 09/26/20 24 Active Ketotifen Fumarate 0.035 % solution Administer 1 drop into affected eye(s) if needed in the morning and at bedtime (eye redness, itching). 10 mL 09/26/20 24 Active azelastine (Astelin) 0.1 % nasal spray Administer 2 sprays into each nostril 2 times daily. Use in each nostril as directed 30 mL 2 09/26/20 24 025 Active Dextromethorpha n-guaiFENesin (Mucinex DM) 30-600 MG tablet sustained-relea se 12 hour Use 1 tab TID 28 tablet 10/09/20 24 Active azithromycin (Zithromax) 250 MG tablet Take 2 tabs day and then 1 tab daily 6 tablet 10/09/20 24 Active topiramate (Topamax) 50 MG tabletIndicatio ns:Class 2 obesity due to excess calories without serious comorbidity with body mass index (BMI) of 39.0 to 39.9 in adult Take 1 tablet (50 mg) by mouth before evening meal. 30 tablet 11 12/07/19 25 026 Active oxymetazoline (Afrin Nasal [place]) 0.05 % nasal sprayIndication s:Recurrent sinusitis Administer 2 sprays into each nostril every 12 (twelve) hours if needed for congestion for up to 2 days. Do not use for more than 3 days. 30 mL 12/07/19 25 Active phentermine 15 MG capsuleIndicati ons:Class 2 obesity due to excess calories without serious comorbidity with body mass index (BMI) of 39.0 to 39.9 in adult TAKE 1 CAPSULE BY MOUTH EVERY DAY IN THE MORNING BEFORE BREAKFAST 30 capsule 01/24/20 25 Active triamcinolone (Kenalog) 0.025 % creamIndication s:Rash APPLY A THIN LAYER TO AFFECTED AREA(S) TWICE DAILY 80 g 01/24/20 25 Active acetaminophen (Tylenol 8 Hour) 650 MG ER tablet Take 1 tablet (650 mg) by mouth every 8 (eight) hours if needed for mild pain. Do not crush, chew, or split. 40 tablet 1 02/22/20 25 025 Active naproxen (Naprosyn) 500 MG tablet Take 1 tablet (500 mg) by mouth if needed in the morning and at bedtime for mild pain. 40 tablet 1 02/22/20 25 026 Active Diclofenac Sodium 1 % gel Apply 2 g topically if needed in the morning, at noon, in the evening, and at bedtime (pain). 150 g 1 02/22/20 25 Active traMADol (Ultram) 50 MG tabletIndicatio ns:Toe pain, right Take 1 tablet (50 mg) by mouth every 8 (eight) hours if needed for severe pain for up to 5 days. 15 tablet 02/22/20 25 025 Active triamcinolone (Kenalog) 0.025 % creamIndication s:Rash Apply topically 2 times daily. APPLY THIN COAT TO AFFECTED AREA TWICE A DAY 80 g 11/16/19 25 025 Discontinued phentermine 15 MG capsuleIndicati ons:Class 2 obesity due to excess calories without serious comorbidity with body mass index (BMI) of 39.0 to 39.9 in adult Take 1 capsule (15 mg) by mouth before breakfast. 30 capsule 11/30/19 25 025 Discontinued Hospital, Clinic, or Other Facility Administered Medication Ordered Dose Route Frequency Start Date End Date Status ulipristal (Lorie) tablet 30 mgIndications:Unprotected sexual intercourse 30 mg PO Once 09/04/2024 Active Active Problems Problem Noted Date Diagnosed Date Recurrent sinusitis 10/26/2024 Vulvar lesion 07/10/2024 Assessment & Plan (07/10/2024 12:37 PM EDT): - seems to be cellulitis secondary to ingrown pubic hair - prescribed Duricef as she did not tolerate Amoxicillin - avoid using razors or shaving the area for the month - keep area clean and dry and avoid popping of the lesion - re consult PRN Screen for STD (sexually transmitted disease) Assessment & Plan (07/10/2024 12:23 PM EDT): - discussed with pt regarding using condoms at all times - order HIV, Syphilis, and Hepatitis profile - repeat testing in one month Encounter for prescription of emergency contrace ption 07/10/2024 Assessment & Plan (07/10/2024 12:27 PM EDT): - pt actually needs Lorie, prescription sent to pharmacy - discussed about the use of contraception, agreed to start OCP, will prescribe progesterone-only pill due to concerns of weight gain Healthcare maintenance 03/29/2024 Overview (03/29/2024): Pap: 02/2023 through [facility] HPV neg. Repeat 02/2026 Declines COVID vaccine Routine childhood vaccines through [facility]-->will request records Mild major depression 03/08/2024 Assessment & Plan (03/08/2024 11:01 AM EDT): PHQ9, DARINEL-7 PHQ9: 13 GAD7: 20 STAGES OF CHANGE PREPARATION PLAN: (check all that apply) New/Additional Services needed Off-site services for Behavioral Health Integration Plan External OP therapy referral Patient Self Plan Patient to utilize skills provided in intervention , Patient to reach out to [facility] team as needed, Patient to engage in OP therapy , and Patient to reach out to PSYCHIATRIC as needed Rule Out Diagnoses n/a Behavioral Health Diagnoses At this time Lin meets criteria for Visit Diagnoses: Problem List Items Addressed This Visit Mild major depression (CMS/HCC) Generalized anxiety disorder Panic disorder Generalized anxiety disorder 03/08/2024 Panic disorder 03/08/2024 Left otitis media 11/04/2022 Resolved Problems Problem Noted Date Diagnosed Date Resolved Date Acute conjunctivitis of both eyes 12/09/2022 02/21/2025 Encounters Date Type Department Care Team Description 02/21/2025 2:00 PM EDT Office Visit [facility] [address] [place] [phone] Toe pain, right (Primary Dx) 02/21/2025 Telephone [facility] [address] [place] [phone] Grazyna Shanks DO 02/21/2025 Travel 02/21/[address] [address] Yokasta Leonardo FNP chart prep 02/18/2025 Patient Outreach [address] [address] Yokasta Leonardo FNP Pre-visit Planning (LVM) 02/01/[address] [address] Yokasta Leonardo FNP No Show 01/31/[address] [address] Yokasta Leonardo FNP chart prep 01/25/2025 Travel 01/25/2025 Telephone [facility] [address] [facility] [place] [address] Malissa Yokasta, CORPORATE RECRUITER Medication Question 01/22/2025 Refill [facility] [address] [place] [address] Yokasta Leonardo, CORPORATE RECRUITER Class 2 obesity due to excess calories without serious comorbidity with body mass index (BMI) of 39.0 to 39.9 in adult; Rash 12/07/2024 10:15 AM EST Office Visit [facility] [address] [facility] [place] [address] Yokasta Leonardo, CORPORATE RECRUITER Class 2 obesity due to excess calories without serious comorbidity with body mass index (BMI) of 39.0 to 39.9 in adult (Primary Dx); Recurrent sinusitis 12/07/2024 Travel 11/30/2024 Orders Only [facility] [address] [place] [address] Yokasta Leonardo, CORPORATE RECRUITER Class 2 obesity due to excess calories without serious comorbidity with body mass index (BMI) of 39.0 to 39.9 in adult (Primary Dx) from Last 3 Months Family History Medical History Relation Name Comments Heart disease Father Diabetes Maternal Grandfather Diabetes type II Mother Relation Name Status Comments Father Maternal Grandfather Mother Social History Tobacco Use Types Packs/Day Years Used Date Smoking Tobacco: Never Passive Smoke Exposure: Never Smokeless Tobacco: Never Tobacco Cessation:Counseling Given: Not Answered Alcohol Use Standard Drinks/Week Comments Never 0 [...] Orientation Straight 12/09/2022 9: 09 AM EST Last Filed Vital Signs Vital Sign Reading Time Taken Comments Blood Pressure 119/76 02/21/2025 2:11 PM EDT Pulse 74 02/21/2025 2:11 PM EDT Temperature 37.2 ??C (98.9 ??F) 02/21/2025 2:11 PM ED T Respiratory Rate 18 02/21/2025 2:11 PM EDT Oxygen Saturation 98% 02/21/2025 2:11 PM EDT Inhaled Oxygen Concentration - - Weight 88.9 kg (196 lb) 02/21/2025 2:11 PM EDT Height 157.5 cm (5' 2 ) 12/07/2024 10:22 AM EST Body Mass Index 35.85 12/07/2024 10:22 AM EST Plan of Treatment Upcoming Encounters Date Type Department Care Team (Late st Contact Info) Description 02/25/2025 9:45 AM EDT Office Visit [facility] [address] [place] [address] [facility], [facility] [address] [place] [address] Health Maintenance Due Date Last Done Comments Alcohol/Substance Use Screening 2010 Family Planning (PISQ) 2013 HPV Vaccines (1 - 3-dose series) 2013 DTaP/Tdap/Td Vaccines (1 - Tdap) 2017 Hepatitis B Vaccines (1 of 3 - 19+ 3-dose series) 2017 COVID-19 Vaccine (1 - 2023-2 5 season) 2024 Influenza Vaccine (#1) 2024 SDOH Screening 01/19/2025 01/20/2024 Depression Screening 12/07/2025 12/07/2024, 12/07/2024 Tobacco Screening 12/11/2025 12/11/2024 Pap Smear 03/10/2026 03/10/2023 Lipid Panel 03/06/2029 03/06/2024 Zoster Vaccines (1 of 2) 2048 RSV Patients and Patients Aged 60 years or older (1 - 1-dose 75+ series) 2073 HIV Screening Completed 03/06/2024, 03/10/2023 Hepatitis C Screening Completed 03/06/2024 , 03/10/2023 HIB Vaccines Aged Out No longer eligi ble based on patient's age to complete this topic Hepatitis A Vaccines Aged Out No long er eligible based on patient's age to complete this topic IPV Vaccines Aged Out No longer eligi ble based on patient's age to complete this topic Meningococcal Vaccine Aged Out No luis mary eligible based on patient's age to complete this topic Pneumococcal Vaccine: Pediatrics (0 to 5 Years) and At-Risk Patients (6 to 49) Years) Aged Out No longer eligible b ased on patient's age to complete this topic RSV under 20 months Aged Out No longe r eligible based on patient's age to complete this topic Rotavirus Vaccines Aged Out No longer eligible based on patient's age to complete this topic Procedures Procedure Name Priority Date/Time Associated Diagnosis Comments XR TOES 2+ VIEWS RIGHT STAT 02/21/2025 2:41 PM EDT Toe pain, right HEPATITIS PANEL, GENERAL Routine 03/06/2024 9:50 AM EDT Encounter for sexually transmitted infection counseling HIV 1/2 ANTIGEN/ANTIBODY, FOURTH GENERATION W/RFL Routine 03/06/2024 9:50 AM EDT Encounter for sexually transmitted infection counseling LIPID PANEL, STANDARD Routine 03/06/2024 9:50 AM EDT Class 3 severe obesity due to excess calories with body mass index (BMI) of 40.0 to 44.9 in adult, unspecified whether serious comorbidity present (CMS/HCC) IMAGE-GUIDED PAP W/AGE BASED SCR,W/CT/NG/TRICH Routine 03/10/2023 11:07 AM EDT Routine cervical smear from Last 3 Months or Most Recently Relevant to Health Maintenance Results * XR Toes 2+ Views Right (02/21/2025 2:41 PM EDT) Anatomical Region Laterality Modality Lower Extremities, Toes Left [facility] 02/21/2025 2:41 PM EDT Narrative 02/21/2025 3:50 PM EDT ?[facility] ?[address] ?[place] [address] ?XRay Report ? Signed ? Patient: Nieto,Lin ?MR#: [id number] ?? [id number] ? : 2000 ?Acct:[id number] ? Age/Sex: 24 / F ?ADM Date: 02/21/25 ? Loc: HO.HHCX ? Attending Dr: Grazyna Shanks DO ? Ordering Physician: Grazyna Shanks DO ?? Date of Service: 02/21/25 ?? Procedure(s): XR toe RT min 2V ?? Accession Number(s): [id number] ? cc: Grazyna Shanks DO ? EXAMINATION: ?? XR TOES, RIGHT ? CLINICAL INFORMATION: ?? pain, swelling, bruising R great toe x 2 days s/p trauma ? COMPARISON: ?? None available. ? TECHNIQUE: ?? 3 views of the right toes were obtained. ? FINDINGS: ?? There is a subtle nondisplaced intra-articular fracture of the distal ?? aspect of the proximal phalanx of the hallux. There is associated soft ?? tissue swelling. ?? There are no additional fractures or malalignment. ? XR/XR toe RT min 2V ?? IMPRESSION: ?? Subtle nondisplaced intra-articular fracture distal aspect of the ?? proximal phalanx of the hallux. Mild soft tissue swelling. ? Electronically signed by: ??Wayne Rodriguez MD ??02/21/2025 03:47 PM EDT RP ? Dictated By: ?Wayne Rodriguez MD ? Signed By: ?<Electronically signed by Wayne Rodriguez MD in OV> ?02/21/25 1547 ? DD/ 1441 ? TD/TT: 02/21/25 1500 ? Assembler Chassis: ? Procedure Note Donguy, Image - 02/21/2025 [facility] [address] [place] [address] XRay Report Signed Patient: Lin NietoMR#: [id number] : 2000Acct:[id number] Age/Sex: M Date: 02/21/25 Loc: HO.HHCX Attending Dr: Grazyna Shanks DO Ordering Physician: Grazyna Shanks DO Date of Service: 02/21/25 Procedure(s): XR toe RT min 2V Accession Number(s): [id number] cc: Grazyna Shanks DO EXAMINATION: XR TOES, RIGHT CLINICAL INFORMATION: pain, swelling, bruising R great toe x 2 days s/p trauma COMPARISON: None available. TECHNIQUE: 3 views of the right toes were obtained. FINDINGS: There is a subtle nondisplaced intra-articular fracture of the distal aspect of the proximal phalanx of the hallux. There is associated soft tissue swelling. There are no additional fractures or malalignment. XR/XR toe RT min 2V IMPRESSION: Subtle nondisplaced intra-articular fracture distal aspect of the proximal phalanx of the hallux. Mild soft tissue swelling. Electronically signed by: Wayne Rodriguez MD 02/21/2025 03:47 PM EDT Dictated By: Wayne Rodriguez MD Signed By: <Electronically signed by Wayne Rodriguez MD in OV> 02/21/25 1547 DD/ 1441 TD/TT: 02/21/25 1500 Assembler Chassis: Grazyna Shanks DO IMG XR PROCEDURES Final Resu lt * Hepatitis Panel, General (03/06/2024 9:50 AM EDT) Hepatitis A IgM Nonreactive Nonreactive [facility] Comment:IgM antibodies to MERAZ V not detected; does not exclude earlyacute or recovered HAV infection. ~Hepatitis B Surface Antibody REACTIVE Nonreactive [facility] Comment:REACTIVE: > 11.99 mI U/mL Hepatitis B Core Antibody Nonreactive Nonreactive [facility] Hepatitis C Antibody Nonreactive Nonreactive [facility] Comment:Antibodies to HCV no t detected; does not exclude early acuteHCV infection. Hepatitis B Surface Ag Negative Negative [facility] Blood 03/06/2024 9:50 AM EDT 03/06/2024 11:34 AM EDT [facility] LAB BLOOD ORDERABLES Final Re sult [facility] [address] [place] [phone] * HIV-1/2 Antigen and Antibodies, Fourth Generation, with Reflexes (03/06/2024 9:50 AM EDT) HIV AB/AG Nonreactive Nonreactive [facility] Comment:HIV-1 p24 Ag and/or HIV-1/HIV-2 Ab not detected.A test result that is nonreactive does not exclude thepossibility of exposure to or infection with HIV-1 and/orHIV-2. Nonreactive results in this assay for individualswith prior exposure to HIV-1 and/or HIV-2 may be due toantigen and antibody levels that are below the limit ofdetection of this assay.The [employer]ik HIV Ag/Ab Combo assay result andsupplemental assay results should be interpreted inconjunction with the patient's clinical presentation,history and other laboratory results. If the results areinconsistent with clinical evidence, additional testing issuggested to confirm the result. Blood Venous blood specimen / Unknown 03/06/2024 9:50 AM EDT 03/06/2024 11:34 AM EDT [facility] LAB BLOOD ORDERABLES Final Re sult Performing Organization Address [facility] Co de Phone Number [facility] [address] [place] [address] [phone] * Lipid Panel, Standard (03/06/2024 9:50 AM EDT) Triglycerides 72 <150 mg/dL [facility] Comment:Desirable Triglyceri de: less than 150 mg/dLBorderline High Triglyceride 150-199 mg/dLHigh Triglyceride: 200-499 mg/dLVery High Triglyceride: greater than or equal to 5OO mg/dL Cholesterol 135 <200 mg/dL [facility] Comment:Desirable Cholestero l: less than 200 mg/dLBorderline High Cholesterol: 200-239 mg/dLHigh Cholesterol: greater than 239 mg/dL LDL Cholesterol Calculated 67 <100 mg/dL [facility] Comment:Desirable LDL: less than 100 mg/dLNear Optimal/Above Optimal LDL: 110- 129 mg/dLBorderline High LDL: 130-159 mg/dLHigh LDL: 160-189 mg/dLVery High LDL: greater than or equal to 190 mg/dL HDL Cholesterol 54 >40 mg/dL [facility] Comment:Desirable HDL: great er than 40 mg/dL Note: This HDL assay may give artificially low results in patients with liver disease. Blood Venous blood specimen / Unknown 03/06/2024 9:50 AM EDT 03/06/2024 11:34 AM EDT [facility] BLOOD ORDERABLES Final Re sult Performing Organization Address [facility] Co de Phone Number [facility] [address] [place] [address] [phone] * (ABNORMAL) Image-Guided Pap with Age-Based Screening??with CT/NG,??Trichomonas (03/10/2023 11:07 AMEDT) Comment [employer] Comment: This order for age-based cervical cancer and STI screening follows ACOG guidelines(PB 168, 140, ROQ699). See individual assays for performing site location. Clinical Information: Routine exam [facility] LMP: NONE GIVEN [facility] Prev. PAP: NONE GIVEN [employer] [facility] Prev. BX: NONE GIVEN [employer] [facility] SOURCE: None given [employer] Statement Of Adequacy: [employer] Comment: Satisfactory for evaluation. Endocervical/transformation zone component present. General Categorization: EPITHELIAL CELL ABNORMALITY(A) [employer] Interpretation/Re sult: Atypical Squamous Cells of Undetermined Significance (ASC-US)(A) [employer] COMMENT: This Pap test has been evaluated with computer assisted technology. [employer] Heel Sander: Ana Maria Maternova Comment: RXB, CT(ASCP) CT screening location: [address] ??[id number] PATHOLOGIST: [employer] Comment: Shaylee Rivera D.O. Board Certified in Anatomic, Clinical and Cytopathology (electronic signature) Consulting Pathologist [facility] Pathology [address] [place] [address] (Always Message) [employer] Comment: EXPLANATORY NOTE: The Pap is a screening test for cervical cancer. It is not a diagnostic test and is subject to false negative and false positive results. It is most reliable when a satisfactory sample, regularly obtained, is submitted with relevant clinical findings and history, and when the Pap result is evaluated along with historic and current clinical information. Chlamydia trachomatis RNA, TMA, Urogenital NOT DETECTED NOT DETECTED [employer] Neisseria gonorrhoeae RNA, TMA, Urogenital NOT DETECTED NOT DETECTED [employer] (Always Message) [employer] Comment: The analytical performance characteristics of this assay, when used to test SurePath(TM) specimens have been determined by [employer]. The modifications have not been cleared or approved by the FDA. This assay has been validated pursuant to the CLIA regulations and is used for clinical purposes. For additional information, please refer to https://education.Air Button/faq/UQA846 (This link is being provided for information/ educational purposes only.) Trichomonas vaginalis, QL, TMA, PAP Vial NOT DETECTED NOT DETECTED [employer] Comment: The analytical performance characteristics of this assay have been determined by [employer]. The modifications have not been cleared or approved by the FDA. This assay has been validated pursuant to the CLIA regulations and is used for clinical purposes. For additional information, please refer to http://[employer].Air Button/ faq/Trichomonastma (This link is being provided for information/ educational purposes only.) Pap Vial 03/10/2023 11:0 7 AM EDT 03/11/2023 3:11 AM EDT Beatriz Boudreaux [facility] CYTOLOGY ORDERABLES F inal Result [facility] [address], [place] [address] [employer] [address] [place] [phone] from Last 3 Months or Most Recently Relevant to Health Maintenance Insurance [facility] Care Teams Truck Bench Mechanic Relationship Specialty Start Date End Date Yokasta Leonardo FNP [address] [place] [phone] PCP - General Family Medicine 01/03/23
--- OUTSIDE RECORDS SUMMARY | 2025-02-21 16:40 | XMS_ITS | Encounter Summary ---
Author Organization [employer] Address [address] [place] [address] Care Team Providers Care Shuttler Car Name Role Phone Yokasta Leonardo INSTALLATION MANAGER Primary Care Provider [phone] Reason for Visit * Reason Comments Toe Injury Encounter Details Date Type Department Care Team (Late st Contact Info) Description 02/21/2025 2:00 PM EDT Office Visit [facility] [place] [address] [place] [address] Toe pain, right (Primary Dx) Social History Tobacco Use Types Packs/Day Years [...] AM EST documented as of this encounter Last Filed Vital Signs Vital Sign Reading Time Taken Comments Blood Pressure 119/76 02/21/2025 2:11 PM EDT Pulse 74 02/21/2025 2:11 PM EDT Temperature 37.2 ??C (98.9 ??F) 02/21/2025 2:11 PM ED T Respiratory Rate 18 02/21/2025 2:11 PM EDT Oxygen Saturation 98% 02/21/2025 2:11 PM EDT Inhaled Oxygen Concentration - - Weight 88.9 kg (196 lb) 02/21/2025 2:11 PM EDT Height - - Body Mass Index 35.85 12/07/2024 10:22 AM EST documented in this encounter Plan of Treatment Upcoming Encounters Date Type Department Care Team (Late st Contact Info) Description 02/25/2025 9:45 AM EDT Office Visit [facility] MEDICINE [address] [place] [address] [facility] [address] [place] [address] documented as of this encounter Procedures Procedure Name Priority Date/Time Associated Diagnosis Comments XR TOES 2+ VIEWS RIGHT STAT 02/21/2025 2:41 PM EDT Toe pain, right documented in this encounter Results * XR Toes 2+ Views Right (02/21/2025 2:41 PM EDT) Anatomical Region Laterality Modality Lower Extremities, Toes Left [facility] 02/21/2025 2:41 PM EDT Narrative 02/21/2025 3:50 PM EDT ?[facility] [facility] ?[address] ?[place] [address] ?XRay Report ? Signed ? Patient: Nieto,Lin ?MR#: [id number] ?? [id number] ? : 2000 ?Acct:[id number] ? Age/Sex: 24 / F ?ADM Date: 02/21/25 ? Loc: HO.HHCX ? Attending Dr: Grazyna Shanks DO ? Ordering Physician: Grazyna Shanks DO ?? Date of Service: 02/21/25 ?? Procedure(s): XR toe RT min 2V ?? Accession Number(s): [id number] ? cc: Grazyna Shanks DO ? EXAMINATION: [...] Rodriguez MD ??02/21/2025 03:47 PM EDT RP ?? Workstation: [id number] ? Dictated By: ?Wayne Rodriguez MD ? Signed By: ?<Electronically signed by Wayne Rodriguez MD in OV> ?02/21/25 1547 ? DD/ 1441 ? TD/TT: 02/21/25 1500 ? Headliner Installer: ? Procedure Note Adan Aguilera - 02/21/2025 [facility] [address] [facility] [place] [address] XRay Report Signed Patient: Lin NietoMR#: [id number] : 2000Acct:[id number] Age/Sex: 24 / FADM Date: 02/21/25 Loc: HO.HHCX Attending Dr: Grazyna Shanks DO Ordering Physician: Grazyna Shanks DO Date of Service: 02/21/25 Procedure(s): XR toe RT min 2V Accession Number(s): [id number] cc: Grazyna Shanks DO EXAMINATION: XR TOES, [...] 02/21/25 1547 DD/ 1441 TD/TT: 02/21/25 1500 Headliner Installer: Grazyna Shanks DO IMG XR PROCEDURES Final Resu lt documented in this encounter Visit Diagnoses Diagnosis Toe pain, right- Primary Pain in soft tissues of limb documented in this encounter Additional Health Concerns Assessment Noted Time PHQ-9 Depression Total Score: 0 12/07/19 25 10:23 AM EST documented as of this encounter Care Teams Shuttler Car Relationship Specialty Start Date End Date MalissaYokasta forbes FNP [address] [place] [address] PCP - General Family Medicine 01/03/23 documented as of this encounter
--- OUTSIDE RECORDS SUMMARY | 2025-02-21 16:40 | XMS_ITS | Encounter Summary ---
Author Organization [employer] Address [address] [place] [address] Care Team Providers Care Multimedia Services Manager Name Role Phone Yokasta Leonardo [facility] Primary Care Provider [phone] Reason for Visit * Reason Comments Pre-visit Planning LVM Encounter Details Date Type Department Care Team ([facility] st Contact Info) Description 02/18/2025 Patient Outreach [facility] MEDICINE [address] [place], [place] [phone] Menan Yokasta [facility] [address] [place], [place] [phone] Pre-visit Planning (LVM) Social History Tobacco Use Types Packs/Day Years [...] AM EST documented as of this encounter Progress Notes * Merry Moya - 02/18/2025 4:19 PM EDT CC Merry Capps placed outbound call to patient to complete pre-visit planning. No answer at this time. Patient name and were not confirmed. CC left voicemail requesting return call. Direct contactinformation provided. documented in this encounter Plan of Treatment Upcoming Encounters Date Type Department Care Team (Late st Contact Info) Description 02/25/2025 9:45 AM EDT Office Visit [facility] MEDICINE [address] [place] [address] Yokasta Leonardo FNP [address] [place] [address] documented as of this encounter Visit Diagnoses Not on filedocumented in this encounter Additional Health Concerns Assessment Noted Time PHQ-9 Depression Total Score: 0 12/07/19 25 10:23 AM EST documented as of this encounter Care Teams Multimedia Services Manager Relationship Specialty Start Date End Date Yokasta Leonardo FNP [address] [place] [address] PCP - General Family Medicine 01/03/23 documented as of this encounter
--- OUTSIDE RECORDS SUMMARY | 2025-02-21 16:40 | XMS_ITS | Encounter Summary ---
Author Organization [employer] Address [address] [place] [address] Care Team Providers Care Kinesiologist Name Role Phone Yokasta Leonardo [facility] Primary Care Provider [phone] Encounter Details Date Type Department Care Team (Latest Contact Info) Description 02/21/2025 Travel Social History Tobacco Use Types Packs/Day Years [...] Description 02/25/2025 9:45 AM EDT Office Visit [facility] [address] [place] [address] Yokasta Leonardo FNP [address] [place] [address] documented as of this encounter Visit Diagnoses Not on filedocumented in this encounter Additional Health Concerns Assessment Noted Time PHQ-9 Depression Total Score: 0 12/07/19 25 10:23 AM EST documented as of this encounter Care Teams Kinesiologist Relationship Specialty Start Date End Date Yokasta Leonardo FNP [address] [place] [address] PCP - General Family Medicine 01/03/23 documented as of this encounter
== END 2025-02-21 14:41 | disposition home or self-care (01) ==
LOC: HO.HHCX 14:40
PROVIDERS: Visit Provider Family Medicine
DX: M79.674 Pain in right toe(s) (principal)
CPT/HCPCS: 73660

== ENCOUNTER → 2025-02-21 14:41 | Outpatient (BNV) | payer MEDICAID, SELFPAY | PROVIDERS: Visit Provider Radiology Diagnostic Radiology | DX: S92.414A Nondisplaced fracture of proximal phalanx of right great toe, initial encounter for closed fracture (principal) | CPT/HCPCS: 73660 ==

== ENCOUNTER 2025-08-26 15:37 | Outpatient (REF) | payer MEDICAID, SELFPAY ==
--- OUTSIDE RECORDS SUMMARY | 2025-08-26 14:30 | XMS_ITS | Encounter Summary ---
Author Organization [employer] Address [address] [place] [address] Care Team Providers Care Hr Advisor Name Role Phone Yokasta Leonardo Primary Care Provider [phone] Reason for Referral * Consultation (Routine) - Authorized Specialty Diagnoses / Procedures Referred By Aman white Referred To Contact Nutrition Diagnoses Class 1 obesity due to excess calories without serious comorbidity with body mass index (BMI) of 34.0 to 34.9 in adult Yokasta Leonardo FNP [address] [place] [address] Phone: tel: fax: Referral ID Status Reason Start Date Expiration Date Visits Requested Visits Authorized [id number] Authorized Consult and Treat 08/26/2025 08/26/2026 1 1 Reason for Visit * Reason Comments Weight Check Encounter Details Date Type Department Care Team ([facility] st Contact Info) Description 08/26/2025 2:30 PM EST Office Visit [facility] MEDICINE [address] [place], [place] [phone] Yokasta Leonardo FNP [address] [place] [address] Class 1 obesity due to excess calories without serious comorbidity with body mass index (BMI) of 34.0 to 34.9 in adult (Primary Dx); Routine screening for STI (sexually transmitted infection); Nipple discharge in female Social History Tobacco Use Types Packs/Day Years Used Date Smoking Tobacco: Never Passive Smoke Exposure: Never Smokeless Tobacco: Never Alcohol Use Standard Drinks/Week Comments Never 0 (1 standard drink = 0.6 oz pur e alcohol) Depression Answer Date Recorded Patient Health Questionnaire-9 Score 0 05/29/2025 Patient Health Questionnaire-9 Score 0 05/29/2025 Last PHQ-9: Questionnaire Data Not on file 0 05/29/2025 Housing Stability Answer Date Recorded What is your housing situation today? I have dori arroyo 02/25/[address] you li ve. Do you have problems with any of the following? None of the above 02/25/2025 Food Insecurity Answer Date Recorded Within the past 12 months, y ou worried that your food would run out before you got money to buy more: Never True 02/25/2025 Within the past 12 months,th e food you bought just didn't last and you didn't have enough money to get more: Never True 02/2025 Transportation Answer Date Recorded In the past 12 months, has l ack of transportation kept you from medical appts, meetings, work or from getting things needed for daily living? No 02/25/2025 Utilities Answer Date Recorded In the past 12 months, has t he electric, gas, oil or water company threatened to shut off services in your home? No 02/25/2025 Depression Answer Date Recorded Patient Health Questionnaire-2 Score 0 05/29/2025 Internet Access Answer Date Recorded Internet Access Q1 Yes 02/25/2025 Internet Access Q2 Not on file 02/25/2025 Comments No Sex and Gender Information Value Date Recorded Sex Assigned at Female 11/04/2022 11:15 AM EST Legal Sex Female 11:14 AM EST Gender Identity Female 11/04/2022 11:15 AM EST Sexual Orientation Straight 12/09/2022 9: 09 AM EST documented as of this encounter Last Filed Vital Signs Vital Sign Reading Time Taken Comments Blood Pressure 112/68 08/26/2025 2:46 PM EST Pulse 88 08/26/2025 2:46 PM EST Temperature - - Respiratory Rate 14 08/26/2025 2:46 PM EST Oxygen Saturation - - Inhaled Oxygen Concentration - - Weight 85.7 kg (189 lb) 08/26/2025 2:46 PM EST Height 157.5 cm (5' 2 ) 08/26/2025 2:46 PM EST Body Mass Index 34.57 08/26/2025 2:46 PM EST documented in this encounter Plan of Treatment Upcoming Encounters Date Type Department Care Team (Late st Contact Info) Description 09/11/2025 2:00 PM EST Procedure Visit [facility] MEDICINE [address] [place] [address] Beatriz Boudreaux CNM [address] [place] [address] Scheduled Orders Name Type Priority Associated Diagnoses Orde r Schedule Syphilis Screen Lab Routine Routine screening for STI (sexually transmitted infection) Expected: 08/26/2025, Expires: 08/26/2026 HIV-1/2 Antigen and Antibodies, Fourth Generation, with Reflexes Lab Routine Routine screening for STI (sexually transmitted infection) Expected: 08/26/2025 (Approximate), Expires: 08/26/2026 hCG, Total, Quantitative Lab Routine Nipple discharge in female Expected: 08/26/2025 (Approximate), Expires: 08/26/2026 TSH W/Reflex to FT4 Lab Routine Nipple discharge in female Expected: 08/26/2025 (Approximate), Expires: 08/26/2026 Prolactin, Dilution Study Lab Routine Nipple discharge in female Expected: 08/26/2025 (Approximate), Expires: 08/26/2026 Chlamydia/N. Gonorrhoeae RNA, TMA, Vaginal Microbiology Routine Routine screening for STI (sexually transmitted infection) Ordered: 08/26/2025 Scheduled Referrals Name Type Priority Associated Diagnoses Orde r Schedule Referral to Nutrition Therapy Outpatient Referral Routine Class 1 obesity due to excess calories without serious comorbidity with body mass index (BMI) of 34.0 to 34.9 in adult Expected: 08/26/2025 (Approximate), Expires: 08/26/2026 documented as of this encounter Visit Diagnoses Diagnosis Class 1 obesity due to excess calories without serious comorbidity with body mass index (BMI) of 34.0 to 34.9 in adult- Primary Routine screening for STI (sexually transmitted infection) Screening examination for venereal disease Nipple discharge in female documented in this encounter Additional Health Concerns Assessment Noted Time PHQ-9 Depression Total Score: 0 05/29/20 25 9:56 AM EDT documented as of this encounter Care Teams Hr Advisor Relationship Specialty Start Date End Date Yokasta Leonardo FNP [address] [place] [address] PCP - General Family Medicine 01/03/23 documented as of this encounter
--- OUTSIDE RECORDS SUMMARY | 2025-08-26 16:49 | XMS_ITS | Encounter Summary ---
Author Organization [employer] Address [address] [place] [address] Care Team Providers Care Survey Director Name Role Phone Yokasta Leonardo [facility] Primary Care Provider [phone] Reason for Visit * Reason Comments Med Refill Encounter Details Date Type Department Care Team ([facility] st Contact Info) Description 06/18/2025 Refill [facility] MEDICINE [address] [place], [place] [phone] Yokasta Leonardo [facility] [address] [place], [place] [phone] Class 2 obesity due to excess calories without serious comorbidity with body mass index (BMI) of 39.0 to 39.9 in adult Social History Tobacco Use Types Packs/Day Years [...] Description 09/11/2025 2:00 PM EST Procedure Visit [facility] MEDICINE [address] [place] [address] Beatriz Boudreaux CNM [address] [place] [address] documented as of this encounter Visit Diagnoses Diagnosis Class 2 obesity due to excess calories without serious comorbidity with body mass index (BMI) of 39.0 to 39.9 in adult documented in this encounter Additional Health Concerns Assessment Noted Time PHQ-9 Depression Total Score: 0 05/29/20 25 9:56 AM EDT documented as of this encounter Care Teams Survey Director Relationship Specialty Start Date End Date Yokasta Leonardo FNP [address] [place] [address] PCP - General Family Medicine 01/03/23 documented as of this encounter
--- OUTSIDE RECORDS SUMMARY | 2025-08-26 16:49 | XMS_ITS | Data Portability ---
Author Organization [place] - [facility], Allergy Address [address] [address] Care Team Providers Care Tow Truck Dispatcher Name Role Phone YOKASTA SOW Primary Care Provider [phone] Assessment Encounter Date Assessment Date Assessment LastModified by Organization Details LastModified Time 07/19/2025 07/19/2025 The patient presents today with both history and physical exam suggestive for chronic sinusitis. This has been minimally worked up so far. Nasal endoscopy significant turbinate hypertrophy, nasal septal deviation, and significant adenoid hypertrophy.. We will need a CT scan to better delineate the paranasal sinus disease. She has tried and follow-up failed multiple medical therapies including 4-5 rounds of steroids and antibiotics. - CT Sinus Ordered - Continue Nasal Washes and Nasal Steroids - Return visit in 1 month to discuss symptoms and potential further interventions - She will likely need septoplasty, BITSMR, adenoidectomy, potentially sinus surgery depending on CT findings. [email or web address] Not available 07/19/2025 14:57:39 08/15/2025 08/15/2025 The patient presents today with both history and physical exam suggestive for adenoid hypertrophy, nasal septal deviation, inferior turbinate hypertrophy, and chronic sinusitis. The above were confirmed on nasal endoscopy previously. CT scan of the sinus was personally reviewed and showed: Redemonstration of significant right septal deflection, bilateral inferior turbinate hypertrophy, bilateral maxillary, ethmoid, sphenoid sinusitis. Aplastic frontal sinuses. Adenoid hypertrophy, left exposed AEA. I did mention that some of her facial pain could be coming from migraines, will know more about this postoperatively We reviewed the clinic findings today with the patient and had an extensive discussion on the natural history of their symptoms and the pathology causing them. The patient has progressive and bothersome symptoms noted previously in the HPI consistent with CRSsNP, which have not improved with optimal medical therapy which include assembly leader use of nasal saline, nasal steroid, and multiple antibiotic/steroid courses. These findings were confirmed on Nasal Endoscopy and CT scan . Options were discussed, including conservative management, further medical management with topical, oral, or immunotherapy, and/or surgical intervention. Surgical Discussion: Surgical plan would consist of: Adenoidectomy, Septoplasty, Bilateral Inferior Turbinate Submucosal Reduction, Bilateral maxillary antrostomy, total sphenoethmoidectom y, Bilateral middle turbinectomy We discussed the risks, benefits, and alternatives of surgery, which include bleeding, infection, crusting, scarring, nasal septal perforation, saddle nose deformity, cranial base injury, CSF leak, orbital injury, vision loss/diplopia, need for postoperative splinting, or need for further procedures. The expected recovery period was reviewed, which will likely include postoperative debridements and splint removal. The patient understands this is a chronic condition and that any comorbid allergic/inflammat ory/immunologic components will also require ongoing management. After reviewing their options, the patient would like to pursue the surgical route. We will work on getting this scheduled at their earliest convenience. The patient understands they can reach out anytime to further clarify questions or concerns. CT/MRI Location & Date for Image guidance: [facility] on 08/15/25 Could be done a surgery dre [email or web address] Not available 08/15/2025 11:05:00 Plan of Treatment Reminders Order Date Submit Date Provider Last Modified By Organization Details Last Modified Time Details Appointments Post Op 2025 03:30P TOMAS MEREDITH Not available Not available Not available Post Op 2025 03:45P Aryan Ross DO Not available Not available Not available Lab None recorded. Referral None recorded. Procedures None recorded. Surgeries septoplas ty (SURG) 2024 025 [email or web address] Not available 08/15/2025 11:09:23 submucous resection inferior turbinate (SURG) 2024 025 [email or web address] Not available 08/15/2025 11:09:23 adenoidec desmond (SURG) 2024 025 [email or web address] Not available 08/15/2025 11:09:23 endoscopy , nasal/sin us, w/ maxillary antrostom y & tissue removal (SURG) 2024 025 [email or web address] Not available 08/15/2025 11:09:23 nasal/sin us endoscopy , surgical with ethmoidec desmond, total, including sphenoido desmond, with removal of tissue from the sphenoid sinus (SURG) 2024 025 [email or web address] Not available 08/15/2025 11:09:23 stereotac tic computer- assisted navigatio n (SURG) 2024 025 [email or web address] Not available 08/15/2025 11:09:[address], sinuses, w/o contrast 2024 025 [email or web address] [facility] [address], [place] [address], [place], [address], 07/24/2025 15:12:17 Medication Orders None recorded. Patient TargetsNo targets recorded. Patient InstructionsNo instructions recorded. Reason for Referral None Reported. Problems Name Problem SNOMED Code Status Onset Date Resolution Date Notes Provider Name and Address Organization Details Recorded Time Chronic sinusitis 07314145 Active 2024 Pk Ross, [place] [address], [place], [address] , [facility] - [facility] 5 12:47:36 Chronic rhinitis 23771686 Active 2024 Not Available [facility] 5 08:20:08 Hypertrophy of adenoids 347611681 Active 2024 Not Available [facility] 5 08:20:08 Hypertrophy of nasal turbinates 72233525 Active 2024 Not Available [facility] 5 08:20:08 Deviated nasal septum 355974642 Active 2024 Not Available [facility] 5 08:20:08 Problem Notes None recorded. Procedures Surgical History Date Name Laterality Status Provider Name and Address Organization Details Recorded Time 08/15/2025 CT sinus - Xoran completed Pk Ross, DO [address] [address], [place], [address], [facility] 08/15/2025 11:04:40 07/19/2025 Nasal Endo DDx_DHL completed Pk Cody, DO 100 [facility], [place], [address], [facility] 07/19/2025 14:56:06 Imaging Results None recorded. Procedure Notes None recorded. Medical Equipment None Reported. Allergies No known drug allergies Medications Name Sig Start Date Stop Date Status Note LastModified by Organization Details LastModified Time azithromyci n 250 mg tablet TAKE 2 TABLETS BY MOUTH ON DAY 1, THEN TAKE 1 TABLET DAILY ON DAYS 2-5 07/17 completed Not Available Not Available Not Available prednisone 20 mg tablet TAKE 2 TABLETS BY MOUTH ONCE DAILY FOR 5 DAYS 07/19 completed Not Available Not Available Not Available phentermine 15 mg capsule TAKE 1 CAPSULE BY MOUTH TWICE DAILY active Not Available Not Available No t Available topiramate 25 mg tablet TAKE 1 TABLET BY MOUTH EVERY EVENING WITH DINNER 07/19 completed Not Available Not Available Not Available bacitracin zinc 500 unit/gram topical ointment APPLY TO THE AFFECTED AREA(S) ONCE DAILY 07/17 completed Not Available Not Available Not Available tramadol 50 mg tablet TAKE 1 TABLET BY MOUTH EVERY 8 HOURS NEEDED FOR SEVERE PAIN 07/19 completed Not Available Not Available Not Available acetaminoph en ER 650 mg tablet,exte nded release TAKE 1 TABLET BY MOUTH EVERY 8 HOURS NEEDED FOR MILD PAIN DO NOT BREAK, CRUSH, DISSOLVE OR CHEW active Not Available Not Available No t Available triamcinolo ne acetonide 0.025 % topical cream APPLY A THIN LAYER TO AFFECTED AREA(S) TWICE DAILY DIRECTED active Not Available Not Available No t Available erythromyci n 5 mg/gram (0.5 %) eye ointment APPLY 1/2 INCH RIBBON TO LOWER LID OF affected eye(s) THREE TIMES DAILY FOR 7 DAYS 07/17 completed Not Available Not Available Not Available montelukast 10 mg tablet TAKE 1 TABLET BY MOUTH AT BEDTIME active Not Available Not Available No t Available azelastine 137 mcg (0.1 %) nasal spray USE 2 SPRAYS IN EACH NOSTRIL TWICE DAILY DIRECTED active Not Available Not Available No t Available naproxen 500 mg tablet TAKE 1 TABLET BY MOUTH TWICE DAILY IN THE MORNING AND AT BEDTIME NEEDED FOR MILD PAIN active Not Available Not Available No t Available escitalopra m 20 mg tablet TAKE 1 TABLET BY MOUTH ONCE DAILY active Not Available Not Available No t Available topiramate 50 mg tablet TAKE 2 TABLETS BY MOUTH EVERY DAY BEFORE SUPPER active Not Available Not Available No t Available Eye Itch Relief 0.025 % (0.035 %) drops INSTILL 1 DROP INTO THE AFFECTED EYE(S) TWICE DAILY IN THE MORNING AND AT BEDTIME NEEDED FOR REDNESS OR (for itching) active Not Available Not Available No t Available Lorie 30 mg tablet TAKE 1 TABLET SOON POSSIBLE WITHIN 5 DAYS AFTER UNPROTECT ED SEX OR IF YOU HAD A CONTROL FAILURE. MAY BE TAKEN WITH OR WITHOUT FOOD. active Not Available Not Available No t Available Vitals None Recorded Social History None recorded. Functional Status None recorded. Mental Status None recorded. Family History Nothing Reported. Medical History Condition Response Anxiety Y Depression Y Gynecological HistoryNo gynecological history recorded. Obstetrics History GPAL:G 0 P 0 0 0 0 Past Encounters Encounter ID Performer Location Encounter Start Date Encounter Closed Date Diagnosis/Indication Diagnosis SNOMED-CT Code Diagnosis ICD10 Code Diagnosis IMO Codes Diagnosis Note [id number] Pk Ross DO [facility] [address] [address] 07/19/2025 13:52:54 07/19/2025 14:58:18 Chronic rhinitis 41894470 J31.0 Chronic sinusitis 395047 00 J32.8 Hypertroph y of adenoids 174379716 J35.2 97508 Hypertroph y of nasal turbinates 05056854 J34.3 9554093 Deviated nasal septum 12 1914556 J34.2 [id number] Pk Ross DO [facility] of [address] [address] 08/15/2025 10:16:07 08/15/2025 11:15:47 Chronic rhinitis 73621700 J31.0 Chronic sinusitis 082060 00 J32.8 Hypertroph y of adenoids 416841111 J35.2 02840 Hypertroph y of nasal turbinates 31030314 J34.3 1209779 Deviated nasal septum 12 4716393 J34.2 59790 Health Concerns Section Related Observation LastModified by Organization Detai ls LastModified Time None Recorded Concern Status LastModified by Organization Details LastModified Time None Recorded Advance Directives Directive None Recorded Payers Insurance Date Sequence Insurance Name Policy Number Policy Roland Covered Member ID Roland Member ID Guarantor Name 03/14/2025 1 [place] [facility] Lin N Nieto [id number] Lin N Nieto 08/15/2025 1 [facility] PUBLIC PLANS [employer] - DIRECT CONNECTORCARE TYPE I (HMO) [id number] Lin N Nieto [id number] Lin N Nieto 03/04/2025 2 [employer] Lin N Nieto [id number] Lin N Nieto Notes Date Note Type Note Provider Name and Address Organization Details Recorded Time 5 text/html ROS as noted in the HPI Ref: Yokasta [place] patient presents today with sinus concerns. Current Symptoms:Nasal Sprays: Using Nasal Saline, Nasal Steroid, AzelastineAllergy Tx: Daily OTC AntihistaimeCourses of Antibiotics and steroids: 4 in 1 yearImmunotherapy Trials: None Prior Allergy Testing: NoneHx of Asthma: YesHx of NSAID/ASA sensitvity: NoPrior Sinus Surgery: No Record review: Patient was previously seen with a history of recurrent sinusitis with her PCP. Did have an outside sinus CT in 2023 which showed significant nasal septal deviation to the right, bilateral mucous retention cysts with both maxillary and ethmoid sinus opacification bilaterally. 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 They also take topiramate as well. Pk Ross, DO 100 [facility],[place] [address], [place], [address], [facility] - [facility] 07/19/2025 14:58:05 5 text/html ROS as noted in the HPI Interval history: Patient reports no improvement in symptoms. Still has significant facial pain and pressure especially the ethmoid maxillary region. She has been consistent with her nasal sprays and antihistamines. Again has had multiple course of antibiotics. Previous visitThe patient presents today with sinus concerns. Current Symptoms:Nasal Sprays: Using Nasal Saline, Nasal Steroid, AzelastineAllergy Tx: Daily OTC AntihistaimeCourses of Antibiotics and steroids: 4 in 1 yearImmunotherapy Trials: None Prior Allergy Testing: NoneHx of Asthma: YesHx of NSAID/ASA sensitvity: NoPrior Sinus Surgery: No Record review: Patient was previously seen with a history of recurrent sinusitis with her PCP. Did have an outside sinus CT in 2023 which showed significant nasal septal deviation to the right, bilateral mucous retention cysts with both maxillary and ethmoid sinus opacification bilaterally. 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 They also take topiramate as well. Pk Ross, DO [address] [place] [address],[place] [address], [place], [address], [facility] - [facility] 08/15/2025 11:05:05 OBGyn Episode No OBEpisode recorded.
--- OUTSIDE RECORDS SUMMARY | 2025-08-26 16:49 | XMS_ITS | Encounter Summary ---
Author Organization [employer] Address 75 [facility] 7t [place] [address] Care Team Providers Care Supervisor Fryer Farm Name Role Phone Yokasta Leonardo [facility] Primary Care Provider [phone] Reason for Visit * Reason Comments Med Refill Encounter Details Date Type Department Care Team ([facility] st Contact Info) Description 06/05/2025 Refill [facility] [address] [place], [place] [phone] Yokasta Leonardo [facility] 230 [place], [place] [phone] Class 2 obesity due to excess calories [...] Description 09/11/2025 2:00 PM EST Procedure Visit [facility] [address] [place] [address] Beatriz Boudreaux CNM [address] [place] [address] documented as of this encounter Visit Diagnoses Diagnosis Class 2 obesity due to excess calories without serious comorbidity with body mass index (BMI) of 39.0 to 39.9 in adult documented in this encounter Additional Health Concerns Assessment Noted Time PHQ-9 Depression Total Score: 0 05/29/20 25 9:56 AM EDT documented as of this encounter Care Teams Supervisor [employer]er Farm Relationship Specialty Start Date End Date Yokasta Leonardo FNP [address] [place] [address] PCP - General Family Medicine 01/03/23 documented as of this encounter
--- OUTSIDE RECORDS SUMMARY | 2025-08-26 16:49 | XMS_ITS | Encounter Summary ---
Author Organization [employer] Address [address] [facility] [address] [place] [address] Care Team Providers Care Chief Contract Officer Name Role Phone Yokasta Leonardo [facility] Primary Care Provider [phone] Encounter Details Date Type Department Care Team (Latest Contact Info) Description 08/26/2025 Travel Social History Tobacco Use Types Packs/Day [...] Description 09/11/2025 2:00 PM EST Procedure Visit [facility] MED[facility]INE [address] [place] [address] Beatriz Boudreaux CNM [address] [place] [address] documented as of this encounter Visit Diagnoses Not on filedocumented in this encounter Additional Health Concerns Assessment Noted Time PHQ-9 Depression Total Score: 0 05/29/20 25 9:56 AM EDT documented as of this encounter Care Teams Chief Contract Officer Relationship Specialty Start Date End Date Water ViewYokasta forbes FNP [address] [place] [address] PCP - General Family Medicine 01/03/23 documented as of this encounter
--- OUTSIDE RECORDS SUMMARY | 2025-08-26 16:49 | XMS_ITS | Encounter Summary ---
Author Organization [employer] Address 75 [facility] 7t [place] [address] Care Team Providers Care Licensing Manager Name Role Phone Yokasta Leonardo [facility] Primary Care Provider [phone] Encounter Details Date Type Department Care Team (Late Contact Info) Description 01/03/2023 Orders Only [facility] [address] [place], [place] [phone] Grazyna Rubio LPN Social History Tobacco Use [...] Description 09/11/2025 2:00 PM EST Procedure Visit [facility] MEDICINE [address] [place], [place] [phone] Beatriz Boudreaux CNM [address] [place], [place] [phone] documented as of this encounter Procedures Procedure Name Priority Date/Time Associated Diagnosis Comments CULTURE, URINE, ROUTINE Routine 05/27/2023 2:21 PM EDT documented in this encounter Results * Culture, Urine, Routine (05/27/2023 2:21 PM EDT) Urine specimen obtained by clean catch procedure / Unknown 05/27/2023 2:21 PM EDT 05/27/2023 7:54 PM EDT Comment:[facility] - 05/29/2023 1:23 PM EDT Urine Culture Report Result Urine Culture > 100,000 cfu/ml Urine Culture Mixed bacterial mariam characteristic of Urine Culture urogenital contamination. Strep agalactiae (Grp B) Quant 10,000 to 50,000 cfu/mL Susc N/A Susceptibility not routinely performed on this isolate. Specimen Source: Urine clean catch us [facility] - GENERAL ORD ERABLES Final Result [facility] [address] [place] [address] [phone] documented in this encounter Visit Diagnoses Not on filedocumented in this encounter Care Teams Licensing Manager Relationship Specialty Start Date End Date Yokasta Leonardo FNP [address] [place] [address] PCP - General Family Medicine 01/03/23 documented as of this encounter
--- OUTSIDE RECORDS SUMMARY | 2025-08-26 16:49 | XMS_ITS | Clinical Summary ---
Author Organization [address] [facility] Address [address] [place] [address] Phone Care Team Providers Care Caterer Helper Name Role Phone [facility] Primary Care Provider [phone] Allergies No known active allergies Medications diclofenac (VOLTAREN) 1 % topical gel Apply 4 g topically 2 (two) times a day. Active Social History Tobacco Use Types Packs/Day Years Used Date Smoking Tobacco: Never Assessed Comments Unknown Sex and Gender Information Value Date Recorded Sex Assigned at Not on file Legal Sex Female 11:40 AM EDT Gender Identity Not on file Sexual Orientation Not on file Last Filed Vital Signs Vital Sign Reading Time Taken Comments Blood Pressure - - Pulse - - Temperature - - Respiratory Rate - - Oxygen Saturation - - Inhaled Oxygen Concentration - - Weight 99.3 kg (219 lb) 07/24/2024 1:06 PM EDT Height 157.5 cm (5' 2 ) 07/24/2024 1:06 PM EDT Body Mass Index 40.06 07/24/2024 1:06 PM EDT Plan of Treatment Health Maintenance Due Date Last Done Comments HPV Vaccines (1 - 3-dose series) 2013 Hepatitis B Vaccines (1 of 3 - 19+ 3-dose series) 2017 Cervical Cancer Screening: P ap Smear 2019 Hepatitis C Screening 08/06/2024 Social Influencers of Health Screening 08/06/2024 Depression Screening 10/24/2024 COVID-19 Vaccine ( - 2023-2 5 season) 2025 Influenza Vaccine (#1) 2025 Cholesterol Screening (Lipid Panel) 03/06/2029 03/06/2024 DTaP,Tdap,and Td Vaccines (2 - Td or Tdap) 02/25/2035 02/25/2025 RSV Immunization Adult Patie nts (1 - 1-dose 75+ series) 2073 HIV Screening Completed 03/06/2024 HIB Vaccines Aged Out No longer eligi ble based on patient's age to complete this topic Hepatitis A Vaccines Aged Out No long er eligible based on patient's age to complete this topic IPV Vaccines Aged Out No longer eligi ble based on patient's age to complete this topic MMR Vaccines Aged Out No longer eligi ble based on patient's age to complete this topic Meningococcal ACWY Vaccine Aged Out N o longer eligible based on patient's age to complete this topic Meningococcal B Vaccine Aged Out No l onger eligible based on patient's age to complete this topic Pneumococcal Vaccine: Pediat rics (0 to 5 Years) and At-Risk Patients (6 to 49 Years) Aged Out No longer eligi ble based on patient's age to complete this topic RSV Immunization Patients Un oanh 20 months Aged Out No longer eligible b ased on patient's age to complete this topic Varicella Vaccines Aged Out No longer eligible based on patient's age to complete this topic Insurance [facility] PUBLIC PLANS Care Teams Caterer Helper Relationship Specialty Start Date End Date Tully Yokasta [address] [address] PCP - General 04/25/24
--- OUTSIDE RECORDS SUMMARY | 2025-08-26 16:49 | XMS_ITS | Encounter Summary ---
Author Organization [employer] Address 75 [facility] 7t [place] [address] Care Team Providers Care Switchboard Mechanic Name Role Phone Yokasta Leonardo [facility] Primary Care Provider [phone] Reason for Visit * Reason Comments Med Refill Encounter Details Date Type Department Care Team ([facility] st Contact Info) Description 06/21/2025 Refill [facility] [address] [place], [place] [phone] Yokasta Leonardo [facility] 230 [place], [place] [phone] Class 2 obesity due to excess calories [...] encounter Miscellaneous Notes * Telephone Encounter - Joyce Sanders MD - 06/21/2025 12:50 PM EDT Patient is not due for medication documented in this encounter Plan of Treatment Upcoming Encounters Date Type Department Care Team (Late st Contact Info) Description 09/11/2025 2:00 PM EST Procedure Visit [facility] [address] [place] [address] Beatriz Boudreaux CNM [address] [place] [address] documented as of this encounter Visit Diagnoses Diagnosis Class 2 obesity due to excess calories without serious comorbidity with body mass index (BMI) of 39.0 to 39.9 in adult documented in this encounter Additional Health Concerns Assessment Noted Time PHQ-9 Depression Total Score: 0 05/29/20 25 9:56 AM EDT documented as of this encounter Care Teams Switchboard Mechanic Relationship Specialty Start Date End Date Yokasta Leonardo FNP [address] [place] [address] PCP - General Family Medicine 01/03/23 documented as of this encounter
--- OUTSIDE RECORDS SUMMARY | 2025-08-26 16:49 | XMS_ITS | Encounter Summary ---
Author Organization [employer] Address 75 [facility] 7t [place] [address] Care Team Providers Care Retail Loss Prevention Officer Name Role Phone Yokasta Leonardo [facility] Primary Care Provider [phone] Reason for Visit * Reason Onset Date Comments Med Refill 06/18/2025 Encounter Details Date Type Department Care Team ([facility] st Contact Info) Description 06/18/2025 Telephone [facility] MED[facility]INE [address] [place], [place] [phone] Yokasta Leonardo [facility] [address] [place], [place] [phone] Med Refill Social History Tobacco Use Types Packs/Day Years [...] Miscellaneous Notes * Telephone Encounter - Grazyna Rubio LPN - 06/18/2025 10:50 AM EDT Medication was discontinued. * Telephone Encounter - Kuldeep Barron - 06/18/2025 10:25 AM EDT TC from pt requesting medication refill. Medications needing refill: topiramate 50 MG tablet To be sent to: [facility]/Pharmacy [address] [place] [address] Pt will be leaving out of state today and requested mediation be sent to specific pharmacy. documented in this encounter Plan of Treatment Upcoming Encounters Date Type Department Care Team (Late st Contact Info) Description 09/11/2025 2:00 PM EST Procedure Visit [facility]INE [address] [place] [address] Beatriz Boudreaux CNM [address] [place] [address] documented as of this encounter Visit Diagnoses Not on filedocumented in this encounter Additional Health Concerns Assessment Noted Time PHQ-9 Depression Total Score: 0 05/29/20 25 9:56 AM EDT documented as of this encounter Care Teams Retail Loss Prevention Officer Relationship Specialty Start Date End Date Laverne MATIAS [place] [address] [place] [address] PCP - General Family Medicine 01/03/23 documented as of this encounter
--- OUTSIDE RECORDS SUMMARY | 2025-08-26 16:49 | XMS_ITS | Clinical Summary ---
Author Organization [employer] Address [address] [facility] [address] [place] [address] Care Team Providers Care Wireline Supervisor Name Role Phone Yokasta Leonardo [facility] Primary Care Provider [phone] Allergies Active Allergy Reactions Criticality Noted Date Comments Fruit Extracts 03/10/2023 Dried fruit allergy Medications * This document contains information received from the source organization and may not represent a complete record from that organization. budesonide (Rhinocort AQ) 32 MCG/ACT nasal sprayIndication s:Chronic sinusitis, unspecified location Administer 1-2 sprays into each nostril in the morning. 8.5 g 2 01/25/20 24 Active Additional Information Patient not taking.Reported on 08/26/2025 hydrOXYzine HCl (Atarax) 25 MG tabletIndicatio ns:Generalized anxiety disorder TAKE 1 TABLET BY MOUTH UP TO 4 TIMES DAILY 120 tablet 1 06/01/20 24 Active Additional Information Patient not taking.Reported on 08/26/2025 escitalopram (Lexapro) 20 MG tabletIndicatio ns:Generalized anxiety disorder Take 1 tablet (20 mg) by mouth Once per day. 30 tablet 2 08/27/20 24 Active Additional Information Patient not taking.Reported on 08/26/2025 bacitracin 500 UNIT/GM ointment Apply to affected area daily 30 g 09/26/20 24 Active Additional Information Patient not taking.Reported on 08/26/2025 Ketotifen Fumarate 0.035 % solution Administer 1 drop into affected eye(s) if needed in the morning and at bedtime (eye redness, itching). 10 mL 09/26/20 24 Active azelastine (Astelin) 0.1 % nasal spray Administer 2 sprays into each nostril 2 times daily. Use in each nostril as directed 30 mL 2 09/26/20 24 025 Active azithromycin (Zithromax) 250 MG tablet Take 2 tabs day and then 1 tab daily 6 tablet 10/09/20 24 Active Additional Information Patient not taking.Reported on 08/26/2025 oxymetazoline (Afrin Nasal [place]) 0.05 % nasal sprayIndication s:Recurrent sinusitis Administer 2 sprays into each nostril every 12 (twelve) hours if needed for congestion for up to 2 days. Do not use for more than 3 days. 30 mL 12/07/19 25 Active naproxen (Naprosyn) 500 MG tablet Take 1 tablet (500 mg) by mouth if needed in the morning and at bedtime for mild pain. 40 tablet 1 02/22/20 25 026 Active Additional Information Patient not taking.Reported on 08/26/2025 Diclofenac Sodium 1 % gel Apply 2 g topically if needed in the morning, at noon, in the evening, and at bedtime (pain). 150 g 1 02/22/20 25 Active triamcinolone (Kenalog) 0.025 % creamIndication s:Rash APPLY A THIN LAYER TO AFFECTED AREA(S) TWICE DAILY DIRECTED 80 g 06/28/20 25 Active albuterol 108 (90 Base) MCG/ACT inhalerIndicati ons:Mild intermittent asthma with (acute) exacerbation Inhale 2 puffs every 4 (four) hours if needed for wheezing. 18 g 2 07/10/20 25 026 Active Lorie 30 MG tablet TAKE 1 TABLET SOON POSSIBLE WITHIN 5 DAYS AFTER UNPROTECTED SEX OR IF YOU HAD A CONTROL FAILURE. MAY BE TAKEN WITH OR WITHOUT FOOD. 1 tablet 08/20/20 25 Active phentermine 37.5 MG capsuleIndicati ons:Class 1 obesity due to excess calories without serious comorbidity with body mass index (BMI) of 34.0 to 34.9 in adult Take 1 capsule (37.5 mg) by mouth before breakfast. 30 capsule 08/26/20 25 025 Active phentermine 15 MG capsuleIndicati ons:Class 2 obesity due to excess calories without serious comorbidity with body mass index (BMI) of 39.0 to 39.9 in adult TAKE 1 CAPSULE BY MOUTH TWICE DAILY 60 capsule 06/28/20 025 Discontinued Active Problems Problem Noted Date Diagnosed Date Viral upper respiratory tract infection 06/01/20 Assessment & Plan (06/01/2025 12:41 PM EDT): Drink plenty of fluids and rest She may take acetaminophen PRN Mild intermittent asthma with (acute) exacerbati on 06/01/2025 Assessment & Plan (06/01/2025 12:43 PM EDT): ER precautions reviewed I prescribed 5 days of prednisone and albuterol inhaler Recurrent sinusitis 10/26/2024 Vulvar lesion 07/10/2024 Assessment [...] 03/29/2024 Overview (03/29/2024): Pap: 02/2023 through [facility] HPV neg. Repeat 02/2026 Declines COVID vaccine Routine childhood vaccines through [facility]-->will request records Mild major depression 03/08/2024 Assessment & Plan (03/08/2024 11:01 AM EDT): PHQ9, DARINEL-7 PHQ9: 13 GAD7: 20 STAGES OF CHANGE PREPARATION PLAN: (check all that apply) New/Additional Services needed Off-site services for Behavioral Health Integration Plan External OP therapy referral Patient Self Plan Patient to utilize skills provided in intervention , Patient to reach out to [facility] team as needed, Patient to engage in OP therapy , and Patient to reach out to [facility] as needed Rule Out Diagnoses n/a Behavioral [...] Encounters Date Type Department Care Team Description 08/26/2025 2:30 PM EST Office Visit [facility] [address] [place] [phone] Yokasta Leonardo FNP Class 1 obesity due to excess calories without serious comorbidity with body mass index (BMI) of 34.0 to 34.9 in adult (Primary Dx); Routine screening for STI (sexually transmitted infection); Nipple discharge in female 08/26/2025 Travel 08/19/2025 Refill [facility] [address] [place] [address] Genoveva Olmos MD 07/23/2025 Telephone [facility] [address] [place] [phone] Yokasta Leonardo FNP Medication Question 07/10/2025 10:00 AM EDT Office Visit [facility] [address] [place] [address] Chalino Vizcaino MD Mild intermittent asthma with (acute) exacerbation (Primary Dx); Hearing abnormally acute, bilateral; Cough in adult patient 07/10/2025 Travel 07/05/2025 Telephone [facility] [address] [place] [address] Yokasta Leonardo FNP nov recall 06/27/2025 Refill [facility] [address] [place] [address] Yokasta Leonardo FNP Rash; Class 2 obesity due to excess calories without serious comorbidity with body mass index (BMI) of 39.0 to 39.9 in adult 06/21/2025 Refill [facility] [address] [place] [address] Yokasta Leonardo FNP Class 2 obesity due to excess calories without serious comorbidity with body mass index (BMI) of 39.0 to 39.9 in adult 06/18/2025 Telephone [facility] [address] [place] [address] Yokasta Leonardo FNP Med Refill 06/18/2025 Refill [facility] [address] [place] [address] Yokasta Leonardo FNP Class 2 obesity due to excess calories without serious comorbidity with body mass index (BMI) of 39.0 to 39.9 in adult 06/05/2025 Refill [facility] [address] [place] [address] Yokasta Leonardo FNP Class 2 obesity due to excess calories without serious comorbidity with body mass index (BMI) of 39.0 to 39.9 in adult 06/01/2025 11:40 AM EDT Office Visit [facility] [address], [place] [phone] Joyce Newman MD Viral upper respiratory tract infection (Primary Dx); Mild intermittent asthma with (acute) exacerbation; Sore throat 06/01/2025 Travel 05/29/2025 10:00 AM EDT Telemedicine [facility] [address] [place] [phone] Yokasta Leonardo FNP Class 2 obesity due to excess calories without serious comorbidity with body mass index (BMI) of 39.0 to 39.9 in adult 05/29/2025 Travel 05/28/2025 Telephone [facility] [address] [place] [address] Yokasta Leonardo FNP chart prep from Last 3 Months Immunizations Immunization Administration Dates Next Due DTaP 12/07/2002, 0,04/21/1999,03/11,1998 HPV 9-Valent 01/27/2016 HPV, Quadrivalent 02/20/2014,02/15/2011 Hep A, ped/adol, 2 dose 01/31/2017,01/27/2016 Hep B, Adolescent or Pediatric 11/16/1999,1998,1998 Hib (HbOC) 11/28/2000,03/11/1999,1998 IPV 12/07/2002, 0,11/16/1999,03/11,1998 Influenza injectable quadriv alent IIV4 with preservative 01/27/2016 Influenza injectable quadriv alent preservative free 08/13/2019,01/31/2017,02/20/2014 MMR 12/07/2002,11/13/1999 Meningococcal MCV4P ACYW-135 01/27/2016,02/16/20 11 Pneumococcal Conjugate PCV 7 11/28/2000,11/16/19 00 Tdap 02/25/2025,02/15/2011 Family History Medical History Relation Name Comments [...] Pulse 88 08/26/2025 2:46 PM EST Temperature 36.7 C (98.1 F) 07/10/2025 10:40 AM EDT Respiratory Rate 14 08/26/2025 2:46 PM EST Oxygen Saturation 99% 07/10/2025 10:40 AM EDT Inhaled Oxygen Concentration - - Weight 85.7 kg (189 lb) 08/26/2025 2:46 PM EST Height 157.5 cm (5' 2 ) 08/26/2025 2:46 PM EST Body Mass Index 34.57 08/26/2025 2:46 PM EST Plan of Treatment Upcoming Encounters Date Type Department Care Team (Late st Contact Info) Description 09/11/2025 2:00 PM EST Procedure Visit [facility] [address] [place] [address] Beatriz Boudreaux, STEPHANIE [address] [place] [address] Health Maintenance Due Date Last Done Comments Alcohol/Substance Use Screening 2010 Family Planning (PISQ) 2013 Pneumococcal Vaccine: Pediatrics (0 to 5 Years) and At-Risk Patients (6 to 49) Years (1 of 2 - PCV) 2017 11/28/2000, 11/16/1999 COVID-19 Vaccine ( season) 2025 11/26/2021, 01/01/2021, 12/10/2020 Influenza Vaccine (#1) 2025 9, 01/31/2017, 01/27/2016, Additional history exists SDOH Screening 02/25/2026 02/25/2025 Pap Smear 03/10/2026 03/10/2023 Depression Screening 05/29/2026 05/29/2025, 05/29/20 Tobacco Screening 07/10/2026 07/10/2025 Disability Screening 08/26/2026 08/26/2025 Lipid Panel 03/06/2029 03/06/2024 DTaP/Tdap/Td Vaccines (9 - Td or Tdap) 02/25/2035 02/25/2025, 06/13/2019, 02/15/2011, Additional history exists Zoster Vaccines (1 of 2) 2048 RSV Patients and Patients Aged 60 years or older (1 - 1-dose 75+ series) 2073 Hepatitis B Vaccines Completed 11/16/1999, 1998, 1998 HIB Vaccines Completed 11/28/2000, 02/21, 1998 IPV Vaccines Completed 12/07/2002, 06/25, 11/16/1999, Additional history exists HPV Vaccines Completed 01/27/2016, 01/24, 02/15/2011 Meningococcal Vaccine Completed 01/27/2016, 011 Hepatitis A Vaccines Completed 01/31/2017, 01/27/20 16 HIV Screening Completed 03/06/2024, 03/10/2023 Hepatitis C Screening Completed 03/06/2024, 023 Meningococcal B Vaccine Aged Out No l onger eligible based on patient's age to complete this topic RSV under 20 months Aged Out No longe r eligible based on patient's age to complete this topic Rotavirus Vaccines Aged Out No longer eligible based on patient's age to complete this topic Procedures Procedure Name Priority Date/Time Associated Diagnosis Comments POCT INFLUENZA B (ID NOW RAPID MOLECULAR) Routine 07/10/2025 11:00 AM EDT Cough in adult patient POCT INFLUENZA A (ID NOW RAPID MOLECULAR) Routine 07/10/2025 11:00 AM EDT Cough in adult patient POCT RAPID COVID ANTIGEN Routine 07/10/2025 10:45 AM EDT Cough in adult patient POCT INFLUENZA B (ID NOW RAPID MOLECULAR) Routine 06/01/2025 11:48 AM EDT Sore throat POCT INFLUENZA A (ID NOW RAPID MOLECULAR) Routine 06/01/2025 11:48 AM EDT Sore throat POC MORAN ID NOW STREP A Routine 06/01/2025 11:44 AM EDT Sore throat POCT RAPID COVID ANTIGEN Routine 06/01/2025 11:44 AM EDT Sore throat HEPATITIS PANEL, GENERAL Routine 03/06/2024 9:50 AM EDT Encounter for sexually transmitted infection counseling HIV 1/2 ANTIGEN/ANTIBODY, FOURTH GENERATION W/RFL Routine 03/06/2024 9:50 AM EDT Encounter for sexually transmitted infection counseling LIPID PANEL, STANDARD Routine 03/06/2024 9:50 AM EDT Class 3 severe obesity due to excess calories with body mass index (BMI) of 40.0 to 44.9 in adult, unspecified whether serious comorbidity present ([facility]) IMAGE-GUIDED PAP W/AGE BASED SCR,W/CT/NG/TRICH Routine 03/10/2023 11:07 AM EDT Routine cervical smear from Last 3 Months or Most Recently Relevant to Health Maintenance Results * Influenza B (ID NOW Rapid Molecular) (07/10/2025 11:00 AM EDT) Only the most recent of2 resultswithin the time period is included. Influenza B Negative Negative, Indeterminate [facility] Swab 07/10/2025 11:0 0 AM EDT Chalino Vizcaino MD POINT OF CARE TEST ENTER/EDIT OR DERABLES Final Result [facility] [address] [place] [phone] * Influenza A (ID NOW Rapid Molecular) (07/10/2025 11:00 AM EDT) Only the most recent of2 resultswithin the time period is included. [facility] Influenza A Negative Negative, Indeterminate [facility] Swab 07/10/2025 11:0 0 AM EDT Chalino Vizcaino MD POINT OF CARE TEST ENTER/EDIT OR DERABLES Final Result Performing Organization Address City/[facility] Co de Phone Number [facility] [address] [place] [phone] * POCT Rapid COVID Ag (07/10/2025 10:45 AM EDT) Only the most recent of2 resultswithin the time period is included. [facility] Rapid COVID Ag Negative Swab 07/10/2025 10:4 5 AM EDT Chalino Vizcaino MD POINT OF CARE TEST ENTER/EDIT OR DERABLES Final Result * POCT Rapid Strep A MORAN ID NOW (06/01/2025 11:44 AM EDT) [facility] Rapid Strep A Screen Negative Negative, None Detected QC Media Lot # [id number] Lot# Expiration Date 52 Swab 06/01/2025 11:4 4 AM EDT Joyce Sanders MD POINT OF CARE TEST EN TER/EDIT ORDERABLES Final Result * Hepatitis Panel, General (03/06/2024 9:50 AM EDT) [facility] Hepatitis A IgM Nonreactive Nonreactive [facility] Comment:IgM antibodies to MERAZ V not detected; does not exclude earlyacute or recovered HAV infection. ~Hepatitis B Surface Antibody REACTIVE Nonreactive [facility] Comment:REACTIVE: > 11.99 mI U/mL Hepatitis B Core Antibody Nonreactive Nonreactive [facility] Hepatitis C Antibody Nonreactive Nonreactive [facility] Comment:Antibodies to HCV no t detected; does not exclude early acuteHCV infection. Hepatitis B Surface Ag Negative Negative [facility] Blood 03/06/2024 9:50 AM EDT 03/06/2024 11:34 AM EDT [facility] LAB BLOOD ORDERABLES Final Re sult Performing Organization Address [facility]/ZIP Co de Phone Number [facility] [address] [place] [phone] [phone] * HIV-1/2 Antigen and Antibodies, Fourth Generation, with Reflexes (03/06/2024 9:50 AM EDT) HIV AB/AG Nonreactive Nonreactive [facility] Comment:HIV-1 p24 Ag and/or HIV-1/HIV-2 Ab not detected.A test result that is nonreactive does not exclude thepossibility of exposure to or infection with HIV-1 and/orHIV-2. Nonreactive results in this assay for individualswith prior exposure to HIV-1 and/or HIV-2 may be due toantigen and antibody levels that are below the limit ofdetection of this assay.The FLENS HIV Ag/Ab Combo assay result andsupplemental assay results should be interpreted inconjunction with the patient's clinical presentation,history and other laboratory results. If the results areinconsistent with clinical evidence, additional testing issuggested to confirm the result. Blood Venous blood specimen / Unknown 03/06/2024 9:50 AM EDT 03/06/2024 11:34 AM EDT [facility] BLOOD ORDERABLES Final Re sult [facility] [address] [place] [phone] * Lipid Panel, Standard (03/06/2024 9:50 AM EDT) Triglycerides 72 <150 mg/dL [facility] Comment:Desirable Triglyceri de: less than 150 mg/dLBorderline High Triglyceride 150-199 mg/dLHigh Triglyceride: 200-499 mg/dLVery High Triglyceride: greater than or equal to 5OO mg/dL Cholesterol 135 <200 mg/dL [facility] Comment:Desirable Cholestero l: less than 200 mg/dLBorderline High Cholesterol: 200-239 mg/dLHigh Cholesterol: greater than 239 mg/dL LDL Cholesterol Calculated 67 <100 mg/dL [facility] Comment:Desirable LDL: less than 100 mg/dLNear Optimal/Above Optimal LDL: 110- 129 mg/dLBorderline High LDL: 130-159 mg/dLHigh LDL: 160-189 mg/dLVery High LDL: greater than or equal to 190 mg/dL HDL Cholesterol 54 >40 mg/dL [facility] Comment:Desirable HDL: great er than 40 mg/dL Note: This HDL assay may give artificially low results in patients with liver disease. Blood Venous blood specimen / Unknown 03/06/2024 9:50 AM EDT 03/06/2024 11:34 AM EDT [facility] LAB BLOOD ORDERABLES Final Re sult [facility] [address] [place] [phone] * (ABNORMAL) Image-Guided Pap with Age-Based Screening??with CT/NG,??Trichomonas (03/10/2023 11:07 AMEDT) Comment [employer] [facility] Comment: This order for age-based cervical cancer and STI screening follows ACOG guidelines(PB 168, 140, NBZ923). See individual assays for performing site location. Clinical Information: Routine exam [facility] LMP: NONE GIVEN [facility] Prev. PAP: NONE GIVEN [facility] Prev. BX: NONE GIVEN [facility] [place] [facility] SOURCE: None given [facility] Statement Of Adequacy: [employer] Comment: Satisfactory for evaluation. Endocervical/transformation zone component present. General Categorization: EPITHELIAL CELL ABNORMALITY(A) [facility] [facility] [employer] Interpretation/Re sult: Atypical Squamous Cells of Undetermined Significance (ASC-US)(A) [facility] COMMENT: This Pap test has been evaluated with computer assisted technology. [employer] [facility] [employer] Spinner Operator: Ana Maria Anonymous [facility] [employer] Comment: RXB, CT(ASCP) CT screening location: [place] [address] PATHOLOGIST: [employer] [facility] [employer] Comment: Shaylee Rivera D.O. Board Certified in Anatomic, Clinical and Cytopathology (electronic signature) Consulting Pathologist [facility] [address] [place] [address] (Always Message) [facility] [employer] Comment: EXPLANATORY NOTE: The Pap is a [...] RNA, TMA, Urogenital NOT DETECTED NOT DETECTED [facility] [place] [facility] Neisseria gonorrhoeae RNA, TMA, Urogenital NOT DETECTED NOT DETECTED [facility] Comment [facility] Comment: The analytical performance characteristics of this assay, when used to test SurePath(TM) specimens have been determined by [employer]. The modifications have not been cleared or approved by the FDA. This assay has been validated pursuant to the CLIA regulations and is used for clinical purposes. For additional information, please refer to https://education.[employer]/faq/WRH420 (This link is being provided for information/ educational purposes only.) Trichomonas vaginalis, QL, TMA, PAP Vial NOT DETECTED NOT DETECTED [facility] Comment: The analytical performance characteristics of this assay have been determined by [employer]. The modifications have not been cleared or approved by the FDA. This assay has been validated pursuant to the CLIA regulations and is used for clinical purposes. For additional information, please refer to http://education.[employer]/ faq/Trichomonastma (This link is being provided for information/ educational purposes only.) Pap Vial 03/10/2023 11:0 7 AM EDT 03/11/2023 3:11 AM EDT Beatriz Boudreaux [facility] ORDERABLES F inal Result [facility] [address], [place] [phone] [facility] [address] [place] [phone] from Last 3 Months or Most Recently Relevant to Health Maintenance Insurance [facility] Care Teams Wireline Supervisor Relationship Specialty Start Date End Date Yokasta Leonardo FNP [address] [place] [phone] PCP - General Family Medicine 01/03/23
--- OUTSIDE RECORDS SUMMARY | 2025-08-26 16:49 | XMS_ITS | Clinical Summary ---
Author Organization [facility] Address [address] [facility] [address] [place] [phone] Phone Care Team Providers Care Group Rooms Coordinator Name Role Phone Unknown, Unknown Primary Care Provider Jeannie naylor Allergies Active Allergy Reactions Criticality Noted Date Comments Fruit Extracts 03/10/2023 Dried fruit allergy Medications triamcinolone acetonide 0.025 % cream APPLY THIN COAT TO AFFECTED AREA TWICE A DAY 10/12/2023 Active albuterol 90 mcg/actuation inhaler Inhale 2 puffs into the lungs every 6 (six) hours as needed for wheezing. 18 g 11/02/2023 Active inhaler spacing device (AEROCHAMBER,BR EATHERITE) Spcr Inhale 1 each into the lungs every 4 (four) hours as needed. 1 each 11/02/2023 Active Active Problems No known active problems Social History Tobacco Use Types Packs/Day Years Used Date Smoking Tobacco: Never Smokeless Tobacco: Never Education Answer Date Recorded Are you interested in more education? Not on zahira e 02/19/2023 Are you concerned about learning? Not on file 02/19/2023 No 02/19/2023 No 02/19/2023 Digital Access Answer Date Recorded No 03/22/2023 No 03/22/2023 Reliable internet access at home? Not on file 03/22/2023 Device with a working camera? Not on file Comments Unknown Sex and Gender Information Value Date Recorded Sex Assigned at Not on file Legal Sex Female 4:15 PM EDT Gender Identity Not on file Sexual Orientation Not on file Last Filed Vital Signs Vital Sign Reading Time Taken Comments Blood Pressure 118/83 11/02/2023 9:50 AM EST Pulse 92 11/02/2023 9:50 AM EST Temperature 37.2 C (99 F) 11/02/2023 9:50 AM EST Respiratory Rate 16 04/14/2022 11:00 AM EDT Oxygen Saturation 96% 11/02/2023 10:20 AM EST Inhaled Oxygen Concentration - - Weight 99.8 kg (220 lb) 11/02/2023 9:50 AM EST Height 160 cm (5' 3 ) 11/02/2023 9:50 AM EST Body Mass Index 38.97 11/02/2023 9:50 AM EST Plan of Treatment Health Maintenance Due Date Last Done Comments Adult Td,Tdap Booster 1998 DEPRESSION SCREENING 2010 HPV VACCINES (1 - 3-dose series) 2013 HEPATITIS C SCREENING 2016 HIV ONE-TIME SCREENING (18-6 5 YEARS) 2016 PAP SMEAR 2019 INFLUENZA VACCINE (#1) 2025 COVID-19 VACCINE (2024-2 6 season) 2025 SMOKING STATUS SCREENING (On ce After 26 Yrs) Completed 11/02/2023 HEPATITIS A VACCINES Aged Out No long er eligible based on patient's age to complete this topic HIB VACCINES Aged Out No longer eligi ble based on patient's age to complete this topic MENINGOCOCCAL VACCINES (ACWY) Aged Out No longer eligible based on patient's age to complete this topic MENINGOCOCCAL VACCINES (B) Aged Out N o longer eligible based on patient's age to complete this topic PNEUMOCOCCAL VACCINES (0-49 years) Aged Out No longer eligible based on patient's age to complete this topic Medical Devices Not on file Insurance [facility] A[employer] Care Teams Group Rooms Coordinator Relationship Specialty Start Date End Date Unknown, Unknown, PCP - General 04/10/22 Additional Source Comments The information contained in this document represents components of the legal health record. It is not the complete legal health record.[facility]
--- OUTSIDE RECORDS SUMMARY | 2025-08-26 16:49 | XMS_ITS | Encounter Summary ---
Author Organization [employer] Address [address] [place] [address] Care Team Providers Care Geography Professor Name Role Phone Yokasta Leonardo [facility] Primary Care Provider [phone] Reason for Visit * Reason Onset Date Comments Medication Question 01/25/2025 Encounter Details Date Type Department Care Team ([facility] st Contact Info) Description 01/25/2025 Telephone [facility] MEDICINE [address] [place], [place] [phone] Malissa Yokasta [facility] [address] [place], [place] [phone] Medication Question Social History Tobacco Use Types [...] and nothing has changed. Contact pt at [phone] documented in this encounter Plan of Treatment Upcoming Encounters Date Type Department Care Team (Late st Contact Info) Description 09/11/2025 2:00 PM EST Procedure Visit [facility] MEDICINE [address] [place] [id number] Beatriz Boudreaux CNM [address] [place] [address] documented as of this encounter Visit Diagnoses Not on filedocumented in this encounter Additional Health Concerns Assessment Noted Time PHQ-9 Depression Total Score: 0 12/07/19 25 10:23 AM EST documented as of this encounter Care Teams Geography Professor Relationship Specialty Start Date End Date Yokasta Leonardo FNP [address] [place] [address] PCP - General Family Medicine 01/03/23 documented as of this encounter
[2025-08-26 18:40] LABS: Free T4 (Free Thyroxine) 0.91 ng/dL (0.71-1.85)
[2025-08-27 05:34] LABS: Syphilis Screen Nonreactive (Nonreactive)
[2025-08-27 06:33] LABS: HIV Num 1 0.05 S/CO (0.00-0.99)
[2025-08-27 14:53] LABS: CT PCR NOT DETECTED (Not Detect.); NG PCR NOT DETECTED (Not Detect.)
[2025-09-05 20:53] LABS: Prolactin Undiluted 2.3 ng/mL
== END 2025-08-26 15:38 | disposition home or self-care (01) ==
LOC: HO.HHCL 15:37
PROVIDERS: PCP Registered Nurse; Visit Provider Registered Nurse
DX: N64.52 Nipple discharge (principal); Z11.4 Encounter for screening for human immunodeficiency virus [HIV]; Z20.2 Contact with and (suspected) exposure to infections with a predominantly sexual mode of transmission
CPT/HCPCS: 36415; 84146; 84439; 84443; 84702; 86780; 87389; 87491; 87591